=== PATIENT | male | born 1975 | race Caucasian/White ===

== ENCOUNTER 2018-02-22 15:07 | Inpatient (IN) | payer OTHER ==
[~2018-02-22] VITALS: Ht 177.8 cm; Wt 235.9 kg
--- NOTE | ~2018-02-22 | HC ---
[facility] [place] [address] CONSULTATION Name: IDRIS FORBES Room #: 427-P ADM IN M.R.#: [id number] Admission: 02/22/18 Attend Phys: Bartolome Bowen MD Discharge: Date of : 71 Report #: [id number] THIS REPORT FOR: //name// CC: [facility] physician/PCP Bartolome Bowen DATE OF SERVICE: 02/23/2018 CHIEF COMPLAINT: Cellulitis and lymphedema of the left lower extremity. HISTORY OF PRESENT ILLNESS: This is a 42-year-old white male patient with history of chronic lymphedema of his left lower extremity. He fell and injured his knee about 6 years ago. He had no surgical intervention or fractures, but states that he developed lymphedema in his leg. Shortly thereafter, he has had recurring history of cellulitis and even had to undergo incision and drainage procedures in 2011 for a recalcitrant infection. The patient states that over the last couple of days, he has developed increasing redness, drainage and odor from his left leg. He was admitted for intravenous antibiotic therapy. I have been asked to see him with regard to wound care. PAST MEDICAL HISTORY: Positive for history of super morbid obesity, chronic lymphedema, left greater than right, recurring left leg cellulitis, history of sleep apnea, hypertension and history of previous MRSA infection. SOCIAL HISTORY: Positive for occasional marijuana use. Denies tobacco use, admits to occasional alcohol consumption. FAMILY HISTORY: Noncontributory. REVIEW OF SYSTEMS: CONSTITUTIONAL: The patient denies fever, chills or weight loss. NEUROLOGICAL: The patient denies focal weakness, numbness or tingling. EYES: The patient denies visual changes, redness or drainage. ENT: The patient denies earache, nasal drainage or sore throat. CARDIOVASCULAR: The patient denies chest pain or palpitation or diaphoresis. PULMONARY: The patient denies cough or shortness of breath. GASTROINTESTINAL: The patient denies nausea, vomiting, diarrhea or abdominal pain. ORTHOPEDIC: The patient does note pain, swelling and drainage from his left lower extremity, slight swelling on the right side with no drainage or odor. Other systems in a 14-point review of systems are negative. PHYSICAL EXAMINATION: VITAL SIGNS: At this time include pulse 67, respiratory rate 14, blood pressure 114/70, temperature 98.2. GENERAL: This is a chronically ill-appearing male patient who appears to be in [address] [address] CONSULTATION Name: IDRIS FORBES Room #: 427-P [facility] IN ..#: [id number] Admission: 02/22/18 Attend Phys: Bartolome oBwen MD Discharge: Date of : 71 Report #: [id number] minimal distress. HEENT: Head is normocephalic. Nose and throat clear. NECK: Supple. LUNGS: Clear. ABDOMEN: Soft, bowel sounds present. EXTREMITIES: Lower extremities demonstrated palpable distal pulses. He has significant lymphedema bilaterally, but much more so on the left than on the right. He has several skin folds of his lower leg on the left side that have some ulceration. He has significant hyperkeratosis of the left leg, none on the right. He has erythema involving the left leg as well as the dorsum of the foot. MEDICATIONS: Include acetaminophen, alprazolam, Celebrex, diclofenac, fentanyl, levofloxacin, oxycodone, ondansetron, Bactrim. ALLERGIES: PIPERACILLIN, COCONUT, ENOXAPARIN AND BEE STINGS. CLINICAL IMPRESSION: 1. Cellulitis and ulceration of the left lower extremity. 2. Lymphedema, bilateral lower extremities, left greater than right. 3. Super morbid obesity. 4. History of methicillin-resistant Staphylococcus aureus infection. 5. Moderate to severe protein-calorie malnutrition. LABORATORY DATA: Wound cultures are pending. White blood cell count 12.9, hemoglobin 13.9. Sodium 137, potassium 3.9, chloride 103, BUN 11, creatinine 0.7. Lactic acid is 1.5. Prealbumin is low at 16.9. RECOMMENDATIONS: At this point, we will recommend daily wound care, cleansing with wound cleanser. We will place silver alginate in the folds of his left lower extremity. Recommend amlactin (ammonium lactate) lotion to the affected areas of the left lower extremity and then lymphedema therapy with compression bandaging daily. Recommend continued antibiotic therapy, pending cultures and sensitivity, aggressive nutritional support to maximize wound healing. I appreciate being asked to see him in consultation. <ELECTRONICALLY SIGNED> By: Amado Field MD 02/24/18 1008 1517 17 Amado Field MD /nt
--- NOTE | ~2018-02-22 | HC ---
[facility] [place] [address] CONSULTATION Name: IDRIS FORBES Room #: 427-P ADM IN M.R.#: [id number] Admission: 02/22/18 Attend Phys: Bartolome Bowen MD Discharge: Date of : 71 Report #: [id number] THIS REPORT FOR: //name// CC: [facility] physician/PCP Bartolome Bowen DATE OF SERVICE: 02/23/2018 REASON FOR CONSULTATION: Evaluation concerning left lower extremity lymphedema with cellulitis. HISTORY OF PRESENT ILLNESS: The patient is a 42-year-old morbidly obese gentleman who has had chronic lymphedema, left lower extremity. In 2011, was diagnosed with MRSA infection in this limb. He states that over the last year, he has lost about 30 pounds. He continues to have significant swelling in the leg. He started doing some debridement of the skin over the last week or so. He has noticed increased swelling and pain mostly in his foot. Because of this, he presented to the Emergency Room for further evaluation. No documented fever, chills or sweats. Most of his issue has been pain in the lower leg and foot. There has been minimal drainage from his lower leg wounds. Mild nausea. He has had loose stools since his cholecystectomy, this is unchanged. No other abdominal pain. No dysuria or frequency. No cough or sputum production. No chest pain or palpitations. No mood changes. No other neurologic issues. No lymphadenopathy noted. REVIEW OF SYSTEMS: Ten-point review negative other than what is described above. ALLERGIES: COCONUT, ENOXAPARIN, ZOSYN. MEDICATIONS: As noted on his MAR including Celebrex, OxyContin and alprazolam. PAST MEDICAL HISTORY: MRSA of the left leg wound in 2011, hypertension, headaches, hyperlipidemia, obstructive sleep apnea, morbid obesity, irregular heart rate. Chronic lymphedema, anxiety, chronic low back pain. FAMILY HISTORY: Noncontributory. SOCIAL HISTORY: Nonsmoker, does use marijuana. No significant alcohol intake. PHYSICAL EXAMINATION: VITAL SIGNS: Afebrile and hemodynamically stable. GENERAL: He is alert and cooperative and ambulatory. He was in no distress. EYES: Without conjunctivitis or scleral icterus. MOUTH: Without mucositis. NECK: Supple, with no thyromegaly. [address] [address] CONSULTATION Name: IDRIS FORBES Room #: 427-P [facility] IN M.R.#: [id number] Admission: 02/22/18 Attend Phys: Bartolome Bowen MD Discharge: Date of : 71 Report #: [id number] SKIN: Without rash other than what will be described on his left lower extremity. LYMPH: No palpable adenopathy. The patient was morbidly obese. LUNGS: Clear. HEART: Regular, without murmur. ABDOMEN: Soft and nontender. Large abdominal pannus. NEUROLOGIC: Normal with cranial nerves intact. Strength normal in upper and lower extremities. Sensation intact. Mood normal. No anxiety or depression. EXTREMITIES: 4+ lymphedema involving the left lower extremity. He had elephantiasis changes below the knee. Swelling in his left foot as well. Erythema was mostly from the ankle to the proximal calf region. Moderate amount of tenderness in this region. He had eschars surrounding the abraded skin. LABORATORY STUDIES: Sodium 137, potassium 3.9, bicarbonate 28, creatinine 0.7. Liver function test normal. Hemoglobin 13.1, platelet count was 219,000, WBC 7.3. Blood cultures pending. Leg wound culture pending. Urinalysis negative. IMPRESSION: 1. Morbid obesity. 2. Chronic lymphedema. 3. Secondary cellulitis with lymphangitis. 4. Hypertension. 5. Chronic pain. RECOMMENDATION: We will continue with vancomycin pending culture results. Screen for MRSA. Continue with daily cleansing of his left lower leg. Elevate left leg. Control edema as much as possible. Weight loss diet. Lymphedema clinic. Nail care. <ELECTRONICALLY SIGNED> By: Alexandru Kwon MD 02/24/18 1700 1236 [id number] Alexandru Kwon MD /nt
[2018-02-22 15:07] VITALS: BP 151/90
[~2018-02-22 15:07] MED LIST: AFLURIA 2045 MCG/0.4; ALPRAZOLAM2 MG PO; BACTRIM DS TAB1 EACH; BACTRIM DS TAB1 EACH PO; BENTYL20 MG PO; CATHFLO ACT2 MG/VIA1 IV PUSH; CELEBREX 200 M200 M1 PO; CELEBREX50 MG; FLEXERIL PO; HYDROCERIN CREA1 JAR TOP; HYDROXYZINE PAMOATE 25 MG PO; IBUPROFEN 600600 M1 PO; IBUPROFEN 800800 M1 PO; MIDODRINE HCL 55 M1 PO; Morphine Sulfate IV PUSH; NORCO 5-325 TA1 EACH PO; ONDANSETRON HCL4 M1 IV; ONDANSETRON HCL4 M2 PO; OXYCONTIN CR 2020 MG PO; OXYCONTIN40 MG PO; PERCOCET 5-3251 EACH PO; PHENERGAN 25 MG25 M1 PO; PHENERGAN25 MG RE; PNEUMOVAX25 MCG/0.5; PREFILLED SUBQ; PROMETHAZINE-C120 ML PO; PROTONIX40 M1 PO; Pantoprazole Sodium 40 Mg Tablet PO; REGLAN 10 MG TA10 MG PO; ROXICODONE30 M1 PO; THEOCHRON200 MG PO; THEOPHYLLINE S200 M1 PO; VOLTAREN100 GM TOP; XANAX XR2 MG PO; ZAROXOLYN 2.5M2.5 M1 PO; ZOFRAN 4 MG ORAL4 M1 DISSOLVE; ZOFRAN ODT4 MG PO; [UNRECOGNIZED DRUG - OTHER] SUBQ
[2018-02-22 16:09] LABS: EOSINOPHILS 2.4 % (0.0-3.0)
[2018-02-22 16:12] LABS: CALCIUM 8.8 mg/dL (8.5-10.1); CREATININE 0.7 mg/dL (0.7-1.3)
[2018-02-22 16:13] LABS: ABSOLUTE NEUTROPHILS 6.5 thou/uL (1.4-8.2); BASOPHILS 0.9 % (0.0-2.0); HEMOGLOBIN 13.9 gm/dL (14.0-18.0); LYMPHOCYTES 27.5 % (24.0-44.0); MCV 88.3 fL (80.0-100.0); MONOCYTES 9.8 % (1.0-8.0); PLATELET COUNT 217 thou/uL (150-400); POLYS 59.4 % (36.0-66.0); RBC 4.65 mil/uL (4.50-6.00); WBC 12.9 thou/uL (4.0-11.0)
[2018-02-22 16:18] LABS: ALBUMIN 2.9 g/dL (3.4-5.0); TOTAL BILIRUBIN 0.2 mg/dL (<0.1-1.0); TOTAL PROTEIN 7.1 g/dL (6.4-8.2)
[2018-02-22 18:04] VITALS: BP 167/93
[2018-02-22 18:10] LABS: ALBUMIN 2.9 g/dL (3.4-5.0); TOTAL PROTEIN 7.2 g/dL (6.4-8.2)
[2018-02-22 18:15] VITALS: BP 150/82
[2018-02-22 18:39] VITALS: BP 135/83
[2018-02-22 18:41] LABS: TSH 1.763 uIU/mL (0.358-3.740)
[2018-02-22 19:54] VITALS: BP 141/87
[2018-02-22 23:45] LABS: URINE BILIRUBIN NEGATIVE (Negative); URINE BLOOD NEGATIVE (Negative); URINE CLARITY CLEAR; URINE GLUCOSE-RANDOM* NEGATIVE (Negative); URINE KETONES NEGATIVE (Negative); URINE LEUKOCYTES-REFLEX NEGATIVE (Negative); URINE NITRITE-REFLEX NEGATIVE (Negative); URINE PROTEIN (DIPSTICK) NEGATIVE (Negative); URINE SPECIFIC GRAVITY >= 1.030 (1.005-1.035); URINE UROBILINOGEN 0.2 E.U./dl (0.2-1.0)
[2018-02-22 23:46] LABS: URINE COLOR YELLOW
[2018-02-23 04:58] VITALS: BP 113/67
[2018-02-23 06:19] LABS: HEMATOCRIT 39.4 % (42.0-52.0); HEMOGLOBIN 13.1 gm/dL (14.0-18.0); MCH 29.7 pg (26.0-34.0); MCHC 33.2 g/dL (28.0-37.0); MCV 89.5 fL (80.0-100.0); RBC 4.4 mil/uL (4.50-6.00); RDW 14.1 % (10.5-14.5); WBC 7.3 thou/uL (4.0-11.0)
[2018-02-23 06:21] LABS: CALCIUM 8.7 mg/dL (8.5-10.1); CREATININE 0.7 mg/dL (0.7-1.3); MAGNESIUM 1.8 mg/dL (1.8-2.4); POTASSIUM 3.9 mmol/L (3.5-5.1)
[2018-02-23 08:07] VITALS: BP 114/71
[2018-02-23 15:28] VITALS: BP 130/88
[2018-02-23 20:49] VITALS: BP 160/98
[2018-02-24 06:13] LABS: HEMATOCRIT 40.9 % (42.0-52.0); HEMOGLOBIN 13.9 gm/dL (14.0-18.0); MCH 30.2 pg (26.0-34.0); MCV 88.9 fL (80.0-100.0); RBC 4.61 mil/uL (4.50-6.00); WBC 6.6 thou/uL (4.0-11.0)
[2018-02-24 06:28] LABS: CALCIUM 8.9 mg/dL (8.5-10.1); CREATININE 0.8 mg/dL (0.7-1.3); MAGNESIUM 1.8 mg/dL (1.8-2.4); POTASSIUM 3.7 mmol/L (3.5-5.1)
[2018-02-24 09:30] VITALS: BP 143/80
[2018-02-24 16:09] VITALS: BP 134/74
[2018-02-24 20:00] VITALS: BP 134/90
[2018-02-25 04:00] VITALS: BP 130/85
[2018-02-25 06:30] LABS: HEMATOCRIT 41.4 % (42.0-52.0); HEMOGLOBIN 14.3 gm/dL (14.0-18.0); MCH 30.3 pg (26.0-34.0); MCHC 34.5 g/dL (28.0-37.0); MCV 87.9 fL (80.0-100.0); RBC 4.71 mil/uL (4.50-6.00); RDW 13.9 % (10.5-14.5)
[2018-02-25 06:42] LABS: CALCIUM 8.9 mg/dL (8.5-10.1); CREATININE 0.8 mg/dL (0.7-1.3); MAGNESIUM 1.7 mg/dL (1.8-2.4)
[2018-02-25 07:30] VITALS: BP 140/99
[2018-02-25 16:27] VITALS: BP 143/100
[2018-02-25 18:41] VITALS: BP 162/94
[2018-02-26 07:43] LABS: HEMATOCRIT 41.6 % (42.0-52.0); HEMOGLOBIN 14.1 gm/dL (14.0-18.0); MCH 29.8 pg (26.0-34.0); MCHC 33.9 g/dL (28.0-37.0); RBC 4.73 mil/uL (4.50-6.00); RDW 13.9 % (10.5-14.5); WBC 6.2 thou/uL (4.0-11.0)
[2018-02-26 08:01] LABS: CALCIUM 9.1 mg/dL (8.5-10.1); CREATININE 0.8 mg/dL (0.7-1.3); MAGNESIUM 1.9 mg/dL (1.8-2.4); POTASSIUM 3.9 mmol/L (3.5-5.1)
[2018-02-26 09:06] VITALS: BP 155/92
[2018-02-26] MEDS ORDERED: MIRALAX17 GM PO (11:53)
[2018-02-26] MEDS ORDERED: PROBIOTIC1 EAC1 PO (11:53)
[2018-02-26] MEDS ORDERED: KEFLEX500 M1 PO (11:53)
[2018-02-26] MEDS ORDERED: AMMONIUM LACTA226 GM TOP (11:53)
[2018-02-26 12:59] VITALS: BP 155/92
== END 2018-02-26 14:37 | disposition home health service (06) | DRG 871 ==
LOC: ER 15:07 → 4E 16:53 → EROBS 16:53 → 4E 18:24 → SICU 02-25 18:24 → ENTRNSPT 02-26 13:56 → EDTRNSPTSTS 02-26 14:27 → SICU 02-26 14:37
PROVIDERS: Emergency Medicine; Internal Medicine
DX: A41.9 Sepsis, unspecified organism (principal); E43 Unspecified severe protein-calorie malnutrition; L03.116 Cellulitis of left lower limb; L97.929 Non-pressure chronic ulcer of unspecified part of left lower leg with unspecified severity; Z68.45 Body mass index [BMI] 70 or greater, adult; F41.9 Anxiety disorder, unspecified; E78.00 Pure hypercholesterolemia, unspecified; I10 Essential (primary) hypertension; E66.01 Morbid (severe) obesity due to excess calories; F12.90 Cannabis use, unspecified, uncomplicated; I87.2 Venous insufficiency (chronic) (peripheral); I89.0 Lymphedema, not elsewhere classified; E78.5 Hyperlipidemia, unspecified; F32.9 Major depressive disorder, single episode, unspecified; F41.8 Other specified anxiety disorders; G47.33 Obstructive sleep apnea (adult) (pediatric); G89.29 Other chronic pain; M54.9 Dorsalgia, unspecified; Z86.14 Personal history of Methicillin resistant Staphylococcus aureus infection; Z88.1 Allergy status to other antibiotic agents; Z88.8 Allergy status to other drugs, medicaments and biological substances; Z87.891 Personal history of nicotine dependence; Z79.899 Other long term (current) drug therapy
CPT/HCPCS: 10183; 15002

== ENCOUNTER → 2018-03-04 | Outpatient (CLI) | payer OTHER ==
[~2018-03-04] MED LIST changes: +AMMONIUM LACTA226 GM TOP; +KEFLEX500 M1 PO; +MIRALAX17 GM PO; +PROBIOTIC1 EAC1 PO
== END ==
LOC: HYPER 02-27 10:00
DX: L03.116 Cellulitis of left lower limb (principal); I89.0 Lymphedema, not elsewhere classified; E66.01 Morbid (severe) obesity due to excess calories; E78.00 Pure hypercholesterolemia, unspecified; G47.30 Sleep apnea, unspecified; I10 Essential (primary) hypertension; L84 Corns and callosities; J45.909 Unspecified asthma, uncomplicated; F12.90 Cannabis use, unspecified, uncomplicated; F41.9 Anxiety disorder, unspecified; F32.9 Major depressive disorder, single episode, unspecified; Z68.45 Body mass index [BMI] 70 or greater, adult; Z87.891 Personal history of nicotine dependence

== ENCOUNTER 2018-04-16 10:19 | Inpatient (IN) | payer OTHER ==
[~2018-04-16] VITALS: Ht 177.8 cm; Wt 233.6 kg
--- NOTE | ~2018-04-16 | HC ---
[facility] [place] [address] CONSULTATION Name: IDRIS FORBES Room #: 458-P [facility] IN M.R.#: [id number] Admission: 04/16/18 Attend Phys: Bartolome Bowen MD Discharge: Date of : 71 Report #: [id number] THIS REPORT FOR: //name// CC: Amado Bowen DATE OF SERVICE: 04/17/2018 CHIEF COMPLAINT: Cellulitis and lymphedema, left lower extremity. HISTORY OF PRESENT ILLNESS: This is a 42-year-old male patient with whom I am familiar with longstanding lymphedema to both lower extremities, much more so on the left than on the right, who was admitted with cellulitis that has developed over the last couple of days. He has increasing swelling, redness and pain in his left lower extremity. He was receiving lymphedema therapy at home and states that the redness has improved gradually worsened. He denies any nausea, vomiting, fever, chills or any urinary symptoms at present. PAST MEDICAL HISTORY: Significant for lumbar disk disease, super morbid obesity, anxiety, chronic lymphedema, left greater than right, recurring cellulitis, sleep apnea, elevated cholesterol. SOCIAL HISTORY: The patient denies alcohol or tobacco use. FAMILY HISTORY: Noncontributory. ALLERGIES: Include COCONUT, ENOXAPARIN, PIPERACILLIN AND TAZOBACTAM. MEDICATIONS: Ondansetron, ammonium lactate, polyethylene glycol, alprazolam, Celebrex. REVIEW OF SYSTEMS: CONSTITUTIONAL: The patient denies fever, chills or weight loss. NEUROLOGICAL: The patient denies focal weakness, numbness or tingling. EYES: The patient denies visual changes, redness or drainage. ENT: The patient denies earache, nasal drainage or sore throat. CARDIOVASCULAR: The patient denies chest pain, palpitations or diaphoresis. PULMONARY: The patient denies cough or shortness of breath. GASTROINTESTINAL: The patient denies nausea, vomiting, diarrhea or abdominal pain. ORTHOPEDIC: The patient does complain of pain, swelling, redness of the left lower extremity. Other systems in a 14-point review of systems are negative. PHYSICAL EXAMINATION: [facility] [address] [place] [address] CONSULTATION Name: IDRIS FORBES Room #: 458-P [facility] IN .R.#: [id number] Admission: 04/16/18 Attend Phys: Bartolome Bowen MD Discharge: Date of : 71 Report #: [id number] VITAL SIGNS: At this time include pulse rate 96, respiratory rate of 18, blood pressure 120/71, temperature 98.9. GENERAL: This is a chronically ill-appearing male patient who appears to be in no distress. HEENT: Head normocephalic. Nose and throat are clear. NECK: Supple. LUNGS: Clear. HEART: Regular rate. ABDOMEN: Soft. Bowel sounds present. EXTREMITIES: Examination of the lower extremities demonstrates significant 3+ edema of the left leg with significant erythema from toes, all the way up to the knee level with warmth consistent with significant cellulitis. The right leg is swollen, but much smaller than the left. NEUROLOGIC: The patient is alert and oriented. LABORATORY DATA: Includes sodium 134, potassium 3.6, chloride 100, CO2 of 24, BUN 14, creatinine 1.0, glucose 94, alkaline phosphatase 78, ALT is 22, total protein 8.1, albumin is 3.4. Lactic acid is 2.2, 3.3 earlier in the day. White blood cell count 21.8 with a hemoglobin of 14.4. The venous Doppler shows no evidence of DVT in either lower extremity. CLINICAL IMPRESSION: 1. Lymphedema, bilateral lower extremities, left much greater than right. 2. Significant cellulitis from toes to knee on the left lower extremity. 3. Super morbid obesity. 4. Obstructive sleep apnea. 5. Lymphedema, bilateral lower extremities. RECOMMENDATIONS: At this point in time, we will recommend continued intravenous antibiotic therapy. There is no obvious area to obtain cultures. We will continue his home medications. We will recommend elevation of the leg for control of edema. It is not reasonable to wrap or compress his leg, as this would likely worsen a cellulitis at present. Once we have the cellulitis under better control, I think we could resume lymphedema therapy and compression bandaging. I do appreciate being asked to see him in consultation. <ELECTRONICALLY SIGNED> By: Amado Field MD 04/20/18 0922 [id number] [id number] Amado Field MD /nt
--- NOTE | ~2018-04-16 | EKG ---
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 : 1975 Requested By: Janey Roberts Order Number: [id number] MD: Mirza Tyson Measurements Intervals [place] Rate: 106 P: 52 MT: 173 QRS: -37 QRSD: 103 T: 43 QT: 330 QTc: 439 Interpretive Statements Sinus tachycardia Poor R wave progression Inferior infarct, age indeterminate Compared to ECG 12/15/2014 12:36:14 Sinus bradycardia no longer present Electronically Signed On 04-17-2018 7:37:56 [employer] by Mirza Tyson [email or web address] <ELECTRONICALLY SIGNED> By: Mirza Tyson MD, [facility] 04/17/18 0737 1045 Mirza Tyson MD, [facility] /EPI
[2018-04-16 10:20] VITALS: BP 109/68
[2018-04-16 11:31] LABS: URINE BILIRUBIN NEGATIVE (Negative); URINE BLOOD NEGATIVE (Negative); URINE CLARITY CLEAR; URINE COLOR YELLOW; URINE GLUCOSE-RANDOM* NEGATIVE (Negative); URINE KETONES NEGATIVE (Negative); URINE LEUKOCYTES NEGATIVE (Negative); URINE NITRITE NEGATIVE (Negative); URINE PROTEIN (DIPSTICK) TRACE (Negative); URINE SPECIFIC GRAVITY 1.015 (1.005-1.035); URINE UROBILINOGEN 0.2 E.U./dl (0.2-1.0)
[2018-04-16 11:38] LABS: HEMATOCRIT 47.3 % (42.0-52.0); HEMOGLOBIN 15.7 gm/dL (14.0-18.0); MCH 29.5 pg (26.0-34.0); MCHC 33.2 g/dL (28.0-37.0); MCV 88.7 fL (80.0-100.0); PLATELET COUNT 177 thou/uL (150-400); RBC 5.34 mil/uL (4.50-6.00); RDW 14.3 % (10.5-14.5); WBC 20.4 thou/uL (4.0-11.0)
[2018-04-16 11:50] LABS: CALCIUM 9.1 mg/dL (8.5-10.1); POTASSIUM 3.6 mmol/L (3.5-5.1)
[2018-04-16 11:56] LABS: ALBUMIN 3.4 g/dL (3.4-5.0); TOTAL BILIRUBIN 1.2 mg/dL (<0.1-1.0); TOTAL PROTEIN 8.1 g/dL (6.4-8.2)
[2018-04-16 12:19] LABS: PLATELET ESTIMATE NORMAL
[2018-04-16 12:39] VITALS: BP 127/90
[2018-04-16 13:35] VITALS: BP 106/77
[2018-04-16 13:58] VITALS: BP 114/72
[2018-04-16] MEDS ORDERED: CYMBALTA30 MG PO (17:21)
[2018-04-16 20:20] VITALS: BP 124/75
[2018-04-17 04:01] VITALS: BP 101/61
[2018-04-17 05:43] LABS: CALCIUM 8.3 mg/dL (8.5-10.1); HEMATOCRIT 43.7 % (42.0-52.0); HEMOGLOBIN 14.4 gm/dL (14.0-18.0); MAGNESIUM 1.5 mg/dL (1.8-2.4); MCH 29.4 pg (26.0-34.0); MCHC 32.8 g/dL (28.0-37.0); MCV 89.6 fL (80.0-100.0); RBC 4.88 mil/uL (4.50-6.00); RDW 13.8 % (10.5-14.5); WBC 21.8 thou/uL (4.0-11.0)
[2018-04-17 05:46] LABS: POTASSIUM 2.9 mmol/L (3.5-5.1)
[2018-04-17 06:20] LABS: ABSOLUTE NEUTROPHILS 21.1 thou/uL (1.4-8.2); PLATELET ESTIMATE NORMAL
[2018-04-17 06:21] LABS: PLATELET COUNT 177 thou/uL (150-400); POLYCHROMASIA OCCASIONAL
[2018-04-17 08:00] VITALS: BP 138/83
[2018-04-17 16:00] VITALS: BP 127/69
[2018-04-17 19:16] VITALS: BP 120/71
[2018-04-18 02:21] VITALS: BP 130/68
[2018-04-18 10:05] VITALS: BP 134/82
[2018-04-18 10:10] LABS: HEMATOCRIT 41.6 % (42.0-52.0); MCH 29.9 pg (26.0-34.0); MCHC 33.7 g/dL (28.0-37.0); MCV 88.6 fL (80.0-100.0); RBC 4.7 mil/uL (4.50-6.00); RDW 14.3 % (10.5-14.5); WBC 11.8 thou/uL (4.0-11.0)
[2018-04-18 10:20] LABS: CALCIUM 8.4 mg/dL (8.5-10.1); CREATININE 0.9 mg/dL (0.7-1.3); MAGNESIUM 1.9 mg/dL (1.8-2.4); POTASSIUM 3.2 mmol/L (3.5-5.1)
[2018-04-18 16:02] VITALS: BP 127/75
[2018-04-18 16:45] VITALS: BP 108/66
[2018-04-18 19:20] VITALS: BP 113/73
[2018-04-18 23:53] VITALS: BP 107/64
[2018-04-19 05:00] VITALS: BP 133/86
[2018-04-19 05:55] LABS: HEMATOCRIT 39.3 % (42.0-52.0); HEMOGLOBIN 13.2 gm/dL (14.0-18.0); MCH 29.8 pg (26.0-34.0); MCHC 33.7 g/dL (28.0-37.0); MCV 88.5 fL (80.0-100.0); RBC 4.44 mil/uL (4.50-6.00); WBC 12.6 thou/uL (4.0-11.0)
[2018-04-19 06:54] LABS: CALCIUM 8.3 mg/dL (8.5-10.1); CREATININE 0.8 mg/dL (0.7-1.3); MAGNESIUM 1.9 mg/dL (1.8-2.4); POTASSIUM 3.4 mmol/L (3.5-5.1)
[2018-04-19 08:00] VITALS: BP 114/69
[2018-04-19 10:58] VITALS: BP 114/69
[2018-04-19 15:18] VITALS: BP 115/64
[2018-04-19 19:49] VITALS: BP 107/76
[2018-04-20 03:01] VITALS: BP 115/79
[2018-04-20 06:29] LABS: HEMATOCRIT 38.2 % (42.0-52.0); HEMOGLOBIN 12.8 gm/dL (14.0-18.0); MCH 29.7 pg (26.0-34.0); MCHC 33.4 g/dL (28.0-37.0); RBC 4.29 mil/uL (4.50-6.00); RDW 14.3 % (10.5-14.5); WBC 8.6 thou/uL (4.0-11.0)
[2018-04-20 06:33] LABS: CALCIUM 8.2 mg/dL (8.5-10.1); CREATININE 0.7 mg/dL (0.7-1.3); MAGNESIUM 1.9 mg/dL (1.8-2.4); POTASSIUM 3.6 mmol/L (3.5-5.1)
[2018-04-20 07:36] VITALS: BP 135/85
[2018-04-20 09:59] VITALS: BP 135/85
[2018-04-20 14:30] VITALS: BP 133/90
[2018-04-20 19:17] VITALS: BP 137/95
[2018-04-21 03:09] VITALS: BP 114/73
[2018-04-21 05:54] LABS: HEMATOCRIT 36.7 % (42.0-52.0); HEMOGLOBIN 12.6 gm/dL (14.0-18.0); MCH 30.2 pg (26.0-34.0); MCHC 34.4 g/dL (28.0-37.0); MCV 87.9 fL (80.0-100.0); RBC 4.17 mil/uL (4.50-6.00); RDW 13.9 % (10.5-14.5)
[2018-04-21 06:09] LABS: CALCIUM 8.3 mg/dL (8.5-10.1); CREATININE 0.6 mg/dL (0.7-1.3); MAGNESIUM 1.8 mg/dL (1.8-2.4); POTASSIUM 3.5 mmol/L (3.5-5.1)
[2018-04-21 08:00] VITALS: BP 128/85
[2018-04-21 16:00] VITALS: BP 145/95
[2018-04-21 19:15] VITALS: BP 135/99
[2018-04-22 06:55] LABS: CALCIUM 8.8 mg/dL (8.5-10.1); CREATININE 0.6 mg/dL (0.7-1.3); MAGNESIUM 1.9 mg/dL (1.8-2.4); POTASSIUM 3.4 mmol/L (3.5-5.1)
[2018-04-22 07:18] LABS: HEMATOCRIT 37.6 % (42.0-52.0); HEMOGLOBIN 12.9 gm/dL (14.0-18.0); MCHC 34.3 g/dL (28.0-37.0); MCV 87.4 fL (80.0-100.0); RBC 4.3 mil/uL (4.50-6.00); RDW 14.2 % (10.5-14.5); WBC 8.5 thou/uL (4.0-11.0)
[2018-04-22 07:38] VITALS: BP 136/76
[2018-04-22 13:15] VITALS: BP 130/74
[2018-04-22 16:26] VITALS: BP 130/74
[2018-04-22 16:33] VITALS: BP 130/74
[2018-04-22 16:36] VITALS: BP 130/74
[2018-04-22] MEDS ORDERED: LASIX 40 MG TAB40 M2 PO (16:59)
[2018-04-22] MEDS ORDERED: ROCEPHIN 11 GM/1001 IV (17:03)
[2018-04-22] MEDS ORDERED: HYDROCODON-ACE1 EAC7 PO (17:05)
== END 2018-04-22 20:13 | disposition home health service (06) | DRG 871 ==
LOC: ER 10:19 → 4W 12:33 → EROBS 12:33 → 4W 13:41
PROVIDERS: Internal Medicine; Nurse Practitioner; Physician Assistant
PROC: 05H933Z Insertion of Infusion Device into Right Brachial Vein, Percutaneous Approach (ICD-10-PCS; principal; 2018-04-16)
DX: A41.9 Sepsis, unspecified organism (principal); E43 Unspecified severe protein-calorie malnutrition; L03.116 Cellulitis of left lower limb; Z68.45 Body mass index [BMI] 70 or greater, adult; R65.20 Severe sepsis without septic shock; E66.01 Morbid (severe) obesity due to excess calories; G47.33 Obstructive sleep apnea (adult) (pediatric); G89.29 Other chronic pain; M54.9 Dorsalgia, unspecified; F32.9 Major depressive disorder, single episode, unspecified; F41.1 Generalized anxiety disorder; I89.0 Lymphedema, not elsewhere classified; Z88.0 Allergy status to penicillin; Z88.8 Allergy status to other drugs, medicaments and biological substances; Z86.14 Personal history of Methicillin resistant Staphylococcus aureus infection; Z79.899 Other long term (current) drug therapy
CPT/HCPCS: 10045; 27000

== ENCOUNTER 2018-04-23 11:58 | Emergency (ER) | payer OTHER ==
[~2018-04-23] VITALS: Ht 177.8 cm; Wt 235.9 kg
[~2018-04-23 11:58] MED LIST changes: +CYMBALTA30 MG PO; +HYDROCODON-ACE1 EAC7 PO; +LASIX 40 MG TAB40 M2 PO; +ROCEPHIN 11 GM/1001 IV
[2018-04-23 11:59] VITALS: BP 146/94
[2018-04-23 12:38] LABS: URINE BILIRUBIN NEGATIVE (Negative); URINE BLOOD NEGATIVE (Negative); URINE CLARITY CLEAR; URINE COLOR YELLOW; URINE GLUCOSE-RANDOM* NEGATIVE (Negative); URINE KETONES NEGATIVE (Negative); URINE LEUKOCYTES-REFLEX NEGATIVE (Negative); URINE NITRITE-REFLEX NEGATIVE (Negative); URINE PROTEIN (DIPSTICK) NEGATIVE (Negative); URINE UROBILINOGEN 0.2 E.U./dl (0.2-1.0)
[2018-04-23 13:53] LABS: HEMATOCRIT 35.8 % (42.0-52.0); HEMOGLOBIN 12.4 gm/dL (14.0-18.0); MCH 30.2 pg (26.0-34.0); MCHC 34.7 g/dL (28.0-37.0); MCV 86.9 fL (80.0-100.0); PLATELET COUNT 318 thou/uL (150-400); RBC 4.12 mil/uL (4.50-6.00); RDW 13.8 % (10.5-14.5); WBC 9.1 thou/uL (4.0-11.0)
[2018-04-23 13:54] VITALS: BP 154/75
[2018-04-23 14:01] LABS: CALCIUM 8.5 mg/dL (8.5-10.1); CREATININE 0.7 mg/dL (0.7-1.3); POTASSIUM 3.3 mmol/L (3.5-5.1)
[2018-04-23 15:45] LABS: ANISOCYTOSIS 1+
[2018-04-23 16:16] VITALS: BP 148/83
== END 2018-04-23 16:21 | disposition home or self-care (01) ==
LOC: ER 11:58 → EROBS 13:40 → ER 13:40 → EROBS 16:21 → ER 16:21
PROVIDERS: Nurse Practitioner Family
DX: M54.5 Low back pain (principal); G89.29 Other chronic pain; L03.116 Cellulitis of left lower limb; I89.0 Lymphedema, not elsewhere classified; K02.9 Dental caries, unspecified; E66.01 Morbid (severe) obesity due to excess calories; F41.9 Anxiety disorder, unspecified; G47.30 Sleep apnea, unspecified; E78.00 Pure hypercholesterolemia, unspecified; Z87.891 Personal history of nicotine dependence; Z91.018 Allergy to other foods; Z68.45 Body mass index [BMI] 70 or greater, adult; Z88.1 Allergy status to other antibiotic agents; Z88.8 Allergy status to other drugs, medicaments and biological substances

== ENCOUNTER 2018-04-27 10:12 | Emergency (ER) | payer OTHER ==
[~2018-04-27] VITALS: Ht 269.2 cm; Wt 235.9 kg
[2018-04-27 15:51] VITALS: BP 128/80
== END 2018-04-27 15:05 | disposition home or self-care (01) ==
LOC: ER 10:12
DX: M70.62 Trochanteric bursitis, left hip (principal); F41.9 Anxiety disorder, unspecified; E78.00 Pure hypercholesterolemia, unspecified; Z87.891 Personal history of nicotine dependence; Z91.018 Allergy to other foods; Z88.8 Allergy status to other drugs, medicaments and biological substances; Y93.89 Activity, other specified
CPT/HCPCS: 27000

== ENCOUNTER 2018-05-01 13:18 | Emergency (ER) | payer OTHER ==
[~2018-05-01] VITALS: Ht 185.4 cm; Wt 215.5 kg
[2018-05-01] MEDS ORDERED: KEFLEX500 M1 PO (15:04)
[2018-05-01] MEDS ORDERED: TORADOL 10 MG T10 MG PO (15:11)
[2018-05-01 15:15] VITALS: BP 131/88
== END 2018-05-01 15:45 | disposition home or self-care (01) ==
LOC: ER 13:18
DX: L03.116 Cellulitis of left lower limb (principal); M25.551 Pain in right hip; F41.9 Anxiety disorder, unspecified; G47.30 Sleep apnea, unspecified; E78.00 Pure hypercholesterolemia, unspecified; Z87.891 Personal history of nicotine dependence; Z91.018 Allergy to other foods; Z88.8 Allergy status to other drugs, medicaments and biological substances; Z88.1 Allergy status to other antibiotic agents

== ENCOUNTER 2019-02-08 08:21 | Emergency (ER) | payer OTHER ==
[~2019-02-08] VITALS: Ht 177.8 cm; Wt 190.5 kg
[~2019-02-08 08:21] MED LIST changes: +TORADOL 10 MG T10 MG PO
[2019-02-08] MEDS ORDERED: PREDNISONE 20 M20 MG PO (08:45)
[2019-02-08] MEDS ORDERED: BENADRYL ALLERG25 MG PO (08:45)
[2019-02-08] MEDS ORDERED: BACITRACIN28.4 G1 TOP (08:45)
[2019-02-08 09:00] VITALS: BP 108/70
== END 2019-02-08 09:00 | disposition home or self-care (01) ==
LOC: ER 08:21
DX: S50.862A Insect bite (nonvenomous) of left forearm, initial encounter (principal); E78.00 Pure hypercholesterolemia, unspecified; F41.9 Anxiety disorder, unspecified; I89.0 Lymphedema, not elsewhere classified; G47.30 Sleep apnea, unspecified; E66.01 Morbid (severe) obesity due to excess calories; Z68.44 Body mass index [BMI] 60.0-69.9, adult; Z86.14 Personal history of Methicillin resistant Staphylococcus aureus infection; Z91.030 Bee allergy status; Z91.018 Allergy to other foods; Z88.8 Allergy status to other drugs, medicaments and biological substances; Z88.0 Allergy status to penicillin; Z87.891 Personal history of nicotine dependence; W57.XXXA Bitten or stung by nonvenomous insect and other nonvenomous arthropods, initial encounter; Y92.89 Other specified places as the place of occurrence of the external cause; Y93.89 Activity, other specified; Y99.8 Other external cause status

== ENCOUNTER 2019-07-19 08:19 | Emergency (ER) | payer MEDICARE ==
[~2019-07-19] VITALS: Ht 177.8 cm; Wt 181.4 kg
[~2019-07-19 08:19] MED LIST changes: +BACITRACIN28.4 G1 TOP; +BENADRYL ALLERG25 MG PO; +PREDNISONE 20 M20 MG PO
[2019-07-19] MEDS ORDERED: NOHOMEMEDICATIONS (08:32)
[2019-07-19 09:08] LABS: BASOPHILS 1.1 % (0.0-2.0); EOSINOPHILS 1.9 % (0.0-3.0); HEMATOCRIT 41.4 % (42.0-52.0); HEMOGLOBIN 13.5 gm/dL (14.0-18.0); LYMPHOCYTES 22.1 % (24.0-44.0); MCH 29.1 pg (26.0-34.0); MCHC 32.6 g/dL (28.0-37.0); MCV 89.1 fL (80.0-100.0); MONOCYTES 8.8 % (1.0-8.0); PLATELET COUNT 261 thou/uL (150-400); POLYS 66.1 % (36.0-66.0); RBC 4.64 mil/uL (4.50-6.00); RDW 13.7 % (10.5-14.5); WBC 9.1 thou/uL (4.0-11.0)
[2019-07-19 09:19] LABS: CALCIUM 9.1 mg/dL (8.5-10.1); CREATININE 0.9 mg/dL (0.7-1.3); POTASSIUM 3.7 mmol/L (3.5-5.1)
[2019-07-19 09:24] LABS: ALBUMIN 3.2 g/dL (3.4-5.0); TOTAL BILIRUBIN 0.4 mg/dL (<0.1-1.0); TOTAL PROTEIN 8.2 g/dL (6.4-8.2)
[2019-07-19 09:33] VITALS: BP 96/75
== END 2019-07-19 09:37 | disposition home or self-care (01) ==
LOC: ER 08:19
PROVIDERS: Emergency Medicine
DX: R05 Cough (principal); R50.9 Fever, unspecified; E78.00 Pure hypercholesterolemia, unspecified; E66.01 Morbid (severe) obesity due to excess calories; F41.9 Anxiety disorder, unspecified; Z68.43 Body mass index [BMI] 50.0-59.9, adult; Z86.14 Personal history of Methicillin resistant Staphylococcus aureus infection; Z87.891 Personal history of nicotine dependence; Z91.030 Bee allergy status; Z91.018 Allergy to other foods; Z88.8 Allergy status to other drugs, medicaments and biological substances

== ENCOUNTER 2020-03-08 10:53 | Inpatient (IN) | payer MEDICARE ==
[~2020-03-08] VITALS: Ht 177.8 cm; Wt 204.1 kg
[~2020-03-08 10:53] MED LIST changes: +NOHOMEMEDICATIONS
[2020-03-08 11:01] VITALS: BP 132/113
[2020-03-08 11:58] LABS: URINE BILIRUBIN NEGATIVE (Negative); URINE BLOOD NEGATIVE (Negative); URINE CLARITY CLEAR; URINE COLOR YELLOW; URINE GLUCOSE-RANDOM* NEGATIVE (Negative); URINE KETONES NEGATIVE (Negative); URINE LEUKOCYTES-REFLEX NEGATIVE (Negative); URINE NITRITE-REFLEX NEGATIVE (Negative); URINE PROTEIN (DIPSTICK) NEGATIVE (Negative); URINE UROBILINOGEN 0.2 E.U./dl (0.2-1.0)
[2020-03-08 12:05] LABS: MCV 89.5 fL (80.0-100.0); WBC 8.3 thou/uL (4.0-11.0)
[2020-03-08 12:07] LABS: ABSOLUTE NEUTROPHILS 5.4 thou/uL (1.4-8.2); BASOPHILS 0.6 % (0.0-2.0); EOSINOPHILS 2.3 % (0.0-3.0); HEMATOCRIT 39.9 % (42.0-52.0); HEMOGLOBIN 13.4 gm/dL (14.0-18.0); MCHC 33.5 g/dL (28.0-37.0); MONOCYTES 9.7 % (1.0-8.0); PLATELET COUNT 220 thou/uL (150-400); POLYS 64.4 % (36.0-66.0); RBC 4.46 mil/uL (4.50-6.00); RDW 14.4 % (10.5-14.5)
[2020-03-08 12:13] LABS: ANION GAP 9 mmol/L (7-16); BUN 12 mg/dL (7-18); CALCIUM 8.6 mg/dL (8.5-10.1); CHLORIDE 104 mmol/L (98-107); CO2 26 mmol/L (21-32); CREATININE 0.6 mg/dL (0.7-1.3); GLUCOSE 98 mg/dL (74-106); POTASSIUM 3.9 mmol/L (3.5-5.1); SODIUM 139 mmol/L (136-145)
[2020-03-08 12:19] LABS: ALBUMIN 3.4 g/dL (3.4-5.0); DIRECT BILIRUBIN < 0.1 mg/dL (<0.1-0.2); LIPASE 69 U/L (73-393); SGOT 16 U/L (15-37); SGPT 20 U/L (30-65); TOTAL BILIRUBIN 0.4 mg/dL (0.2-1.0); TOTAL PROTEIN 7.6 g/dL (6.4-8.2)
[2020-03-08 14:49] VITALS: BP 122/60
[2020-03-08 16:00] LABS: TSH 1.524 uIU/mL (0.358-3.740)
[2020-03-08 22:41] VITALS: BP 137/86
[2020-03-09 01:04] VITALS: BP 125/82
--- NOTE | 2020-03-09 04:20 | NUR ---
Pt was an admit. No acute distress. Scheduled meds administered to pt. Assessment completed and documented. Continue to monitor pt. No further needs at this time
[2020-03-09 04:27] VITALS: BP 120/73
[2020-03-09 06:34] LABS: ABSOLUTE NEUTROPHILS 5.5 thou/uL (1.4-8.2); EOSINOPHILS 2.5 % (0.0-3.0); HEMATOCRIT 40.8 % (42.0-52.0); HEMOGLOBIN 13.3 gm/dL (14.0-18.0); LYMPHOCYTES 16.2 % (24.0-44.0); MCH 29.5 pg (26.0-34.0); MCHC 32.7 g/dL (28.0-37.0); MCV 90.4 fL (80.0-100.0); MONOCYTES 9.5 % (1.0-8.0); PLATELET COUNT 196 thou/uL (150-400); POLYS 70.8 % (36.0-66.0); RBC 4.51 mil/uL (4.50-6.00); RDW 14.3 % (10.5-14.5); WBC 7.8 thou/uL (4.0-11.0)
[2020-03-09 06:45] LABS: CALCIUM 8.5 mg/dL (8.5-10.1); CREATININE 0.8 mg/dL (0.7-1.3); POTASSIUM 3.7 mmol/L (3.5-5.1)
[2020-03-09 08:21] VITALS: BP 157/110
--- NOTE | 2020-03-09 15:24 | NUR ---
ASSUMED CARE OF PT AT 0700. PT ALERT AND ORIENTED TIMES FOUR. VSS, IVF INFUSING PER ORDER. PT DENIES PAIN/SOB. PT C/O NAUSEA PRN MEDICAIONS GIVEN WITH SOME RELEIF. PT TOLERATES MEDS, BUT HAS VERY POOR APPETITE. PT UP WITH STANDBY ASSIST. WILL CONTINUE TO MONITOR.
[2020-03-09 16:26] VITALS: BP 148/82
--- NOTE | 2020-03-09 16:34 | NUR ---
CM ATTEMPTED TO VISIT WITH PT THIS AFTERNOON. PT WAS SLEEPING. IT IS CM UNDERSTANDING THAT PT IS TO TRANSFER TO [address] ON [address] THIS AFTERNOON. CM TO FOLLOW INDICATED WITH DC PLANNING.
[2020-03-09 20:18] VITALS: BP 123/79
[2020-03-10 02:12] LABS: HEMATOCRIT 42.8 % (42.0-52.0); HEMOGLOBIN 13.9 gm/dL (14.0-18.0); MCH 29.3 pg (26.0-34.0); MCHC 32.5 g/dL (28.0-37.0); MCV 90.4 fL (80.0-100.0); RBC 4.74 mil/uL (4.50-6.00); RDW 14.1 % (10.5-14.5); WBC 11.3 thou/uL (4.0-11.0)
[2020-03-10 02:21] LABS: CALCIUM 8.4 mg/dL (8.5-10.1); CREATININE 0.6 mg/dL (0.7-1.3); POTASSIUM 3.9 mmol/L (3.5-5.1)
--- NOTE | 2020-03-10 05:35 | NUR ---
ASSUMED PT CARE AROUND 1930. AXOX4. CALLS WHEN HELP NEEDED. VSS. DENIES ANY PAIN. NO S/S ACUTE DISTRESS NOTED OR REPORTED AT THIS TIME. WILL CONT TO MONITOR FOR ANY CHANGES IN CONDITION.
[2020-03-10 08:44] VITALS: BP 144/100
--- NOTE | 2020-03-10 10:23 | NUR ---
PT ADMITTED RELATED TO BLL LYMPEDEMA. CM REVIEWED CHART AND SPOKE WITH CARE TEAM. CM CALLED AND SPOKE WITH PT AT BEDSIDE THIS DAY. PT APPREARED TO BE A&O X4. CM ROLE INTRODUCED. PT INDICATED HE LIVES ALONE IN A HOUSE WITH NO STEPS TO ENTER AND A FULL FLIGHT HE USES INSIDE. 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 PT INDICATED HE HAD [facility] FOR LYMP[facility]EMA SERVICES IN THE PAST AND THAT HE WOULD BE RECEPTIVE TO USING THEM AGAIN IF NEEDED UPON DC. PT'S PHYSICAIN IS CLAUDINE OCHOA AT [facility] IN [facility]. PT INDICATED HE PLANS TO RETURN HOME ONCE MEDICALLY STABLE. PT IS ON IV VANC AND WC CONSULTED. CM TO FOLLOW INDICATED WITH DC PLANNING.
--- NOTE | 2020-03-10 11:46 | NUR ---
PT A&OX4, VSS, DENIES PAIN AT THIS TIME. PATIENT C/O NAUSEA THIS A.M. DENIES VOMITING. REFUSED BREAKFAST. LYPHEDEMA NURSE IN TO ACCESS LEFT LEG. NS DISCONTINUED, ANTIBIOTICS CONTINUE TO RUN. NO SIGNS OF DISTRESS. WILL CONTINUE TO MONITOR.
[2020-03-10 12:19] VITALS: BP 141/62
--- NOTE | 2020-03-10 13:24 | NUR ---
Nutrition: Assessed for BMI > 40 (64.6 kg/m2) and mention of very poor appetite yesterday. Admit: bilateral LE lymphedema. Wound care to see, on IV antibiotics. On a regular diet. Talked with pt today. He refused all meals yesterday with nursing noting very poor appetite. Pt explains he needed to go to bathroom really bad and waited too long. Further explains, once his stomach gets upset, he typically can't tolerate/keep down food. After ~24 hr period, he can resume normal PO intake patterns per pt. States lunch currently is going pretty well again. He has the menu. RD strongly encouraged him to call kitchen over weekend, to make changes as needed, especially to support his increased protein needs for skin compromise. He declined any need for Ensure, but isn't against it if it reaches that point. Agrees for RD to add yogurt serving BID to breakfast, lunch. Pt denies any further nutrition concerns or needs. Keep as low nutrition risk for now.
[2020-03-10 15:34] VITALS: BP 154/104
[2020-03-10 19:20] VITALS: BP 150/99
--- NOTE | 2020-03-11 01:13 | NUR ---
ASSUMED PT CARE AROUND 1930. VSS. AXOX4. MAKES NEEDS KNOWN. LLE WRAPPED CDI. IV REPLACED PER IV TEAM. NO S/S ACUTE DISTRESS NOTED OR REPORTED AT THIS TIME. WILL CONT TO MONITOR FOR ANY CHAANGES IN CONDITION.
[2020-03-11 05:57] LABS: CALCIUM 8.5 mg/dL (8.5-10.1); CREATININE 0.8 mg/dL (0.7-1.3); POTASSIUM 3.4 mmol/L (3.5-5.1)
[2020-03-11 06:09] LABS: HEMATOCRIT 42.3 % (42.0-52.0); HEMOGLOBIN 14.1 gm/dL (14.0-18.0); MCH 29.9 pg (26.0-34.0); MCHC 33.3 g/dL (28.0-37.0); MCV 89.9 fL (80.0-100.0); RBC 4.7 mil/uL (4.50-6.00); RDW 14.3 % (10.5-14.5); WBC 7.1 thou/uL (4.0-11.0)
[2020-03-11 08:22] VITALS: BP 157/118
[2020-03-11 16:36] VITALS: BP 147/113
[2020-03-11 19:23] VITALS: BP 145/88
--- NOTE | 2020-03-11 19:42 | NUR ---
ASSUMED PATIENT CARE THIS AM. ASSESSMENT CHARTED. MEDS GIVEN PER MAR. PATIENT IS A&OX4 C/O OF PAIN IN LEG. REFUSES ANY NARCOTICS BUT STATES TORADOL HELPS. SPOKE WITH PROVIDER ABOUT THIS ISSUE DURING MORNING ROUNDS. PATIENT IS VERY UPSET ABOUT FRIENDS AND MOTHERS NEW DISCOVERY OF A MASS. PATIENT STATED HE WASN'T ABLE TO SLEEP LAST NIGHT AND WAS ANXIOUS; PROVIDER ORDERED PRN ANTI-ANXIETY MED. WOUND CARE DONE TODAY; ADMISSION ASSESSMENT WAS DONE BUT THERE WERE NO PICTURES IN THE CHART. ADMISSION CHECKLIST ON CHART WAS ALSO NOT COMPLETED. PATIENT GETS UP AROUND WITH A CANE AND TOLERATES VERY WELL. APPETITE IS FAIR. PATIENT RESTED MOST OF THE DAY D/T DEPRESSED MOOD. VOICED NO OTHER NEEDS. WILL CONTINUE TO MONITOR
--- NOTE | 2020-03-12 05:41 | NUR ---
Pt. has been up most of the shift playing on his i-pad. He did c/o right knee pain and po pain med given with some relief (see emar). He reports that he twisted his knee a little when getting up. Prn ativan given for anxiety (see emar) with some relief.
[2020-03-12 06:28] LABS: HEMATOCRIT 43.2 % (42.0-52.0); HEMOGLOBIN 14.3 gm/dL (14.0-18.0); MCH 29.8 pg (26.0-34.0); MCV 90.3 fL (80.0-100.0); RBC 4.78 mil/uL (4.50-6.00); WBC 7.1 thou/uL (4.0-11.0)
[2020-03-12 06:57] LABS: CALCIUM 8.5 mg/dL (8.5-10.1); CREATININE 0.7 mg/dL (0.7-1.3); POTASSIUM 3.3 mmol/L (3.5-5.1)
[2020-03-12 07:38] VITALS: BP 157/92
[2020-03-12 15:45] VITALS: BP 168/100
--- NOTE | 2020-03-12 18:42 | NUR ---
PT A&OX4, VSS, PAIN IN LEFT LEG. PATIENT DRESSING CHANGE COMPLETED BY DOCTOR. IV REMAINS PATENT IN L FA. NO SIGNS OF DISTRESS. WILL CONTINUE TO MONITOR.
[2020-03-12 20:14] VITALS: BP 146/84
--- NOTE | 2020-03-13 03:10 | NUR ---
ASSUMED PT CARE AROUND 1930. AXOX4. VSS. CALLS FOR ASST. LLE DRESSING CDI. NO S/S ACUTE DISTRESS NOTED OR REPORTED AT THIS TIME. WILL CONT TO MONITOR FOR ANY CHANGES IN CONDITION.
[2020-03-13 10:00] VITALS: BP 154/119
--- NOTE | 2020-03-13 15:05 | NUR ---
PT CONTINUES ON VAN Q8 AND IS GETTING LYMPHEDEMA TREATMENT. CM FAXED REFERRAL TO [facility] WHO PT HAD USED IN THE PAST. CM TO PROVIDE LIST OF PCPS HERE AT [facility] PT HAD EXPRESSED INTEREST IN GETTING NEW PCP. AWAITING FINAL ID RECS. CM FOLLOWING REGARDING DC PLANNING. PT APPEARES THAT PT IS ON O2 CURRENTLY. CM DOESN'T RECALL PT HAVING BEEN ON O2 ACUTE SPECIALIST. CM TO CLARIFY WITH NURSE. CM TO FOLLOW INDICATED WITH DC PLANNING.
[2020-03-13] MEDS ORDERED: AMMONIUM LACTA226 GM TOP (16:45)
[2020-03-13 16:46] VITALS: BP 146/84
[2020-03-13] MEDS ORDERED: VIBRAMYCIN 100100 MG PO (16:46)
[2020-03-13] MEDS ORDERED: LASIX 40 MG TAB40 MG PO (16:55)
--- NOTE | 2020-03-13 16:56 | NUR ---
ASSUMED CARE AT SHIFT CHANGE. PT A/O X 4. PROGRESSING TOWARDS POC GOALS. PT CLEARED BY ID TO GO HOME TODAY. PT UPDATED ON POC, WILL DC THIS EVENING HOME. AMBULATORY WITH STEADY GAIT WITH CANE. VSS. IV D/C'D PRIOR TO DC. NO TELE.
[2020-03-13 17:00] VITALS: BP 156/113
== END 2020-03-13 18:00 | disposition home health service (06) | DRG 602 ==
LOC: ER 10:53 → SICU 15:09 → EROBS 15:09 → 4W 15:09 → EROBS 20:30 → 4W 22:27 → SICU 22:41 → 4W 03-09 18:31
PROVIDERS: Nurse Practitioner; ADMIT Hospitalist; ATTEND Hospitalist
DX: L03.116 Cellulitis of left lower limb (principal); E43 Unspecified severe protein-calorie malnutrition; Z68.44 Body mass index [BMI] 60.0-69.9, adult; I89.0 Lymphedema, not elsewhere classified; E66.01 Morbid (severe) obesity due to excess calories; M43.10 Spondylolisthesis, site unspecified; F41.9 Anxiety disorder, unspecified; F32.9 Major depressive disorder, single episode, unspecified; G47.33 Obstructive sleep apnea (adult) (pediatric); Z88.1 Allergy status to other antibiotic agents; Z91.030 Bee allergy status; Z91.018 Allergy to other foods; Z87.891 Personal history of nicotine dependence; Z79.899 Other long term (current) drug therapy
CPT/HCPCS: 10040; 15000; 15002

== ENCOUNTER 2020-05-31 17:44 | Emergency (ER) | payer OTHER ==
[~2020-05-31] VITALS: Ht 177.8 cm; Wt 201.8 kg
[~2020-05-31 17:44] MED LIST changes: +LASIX 40 MG TAB40 MG PO; +VIBRAMYCIN 100100 MG PO
[2020-05-31 17:47] VITALS: BP 144/85
[2020-05-31] MEDS ORDERED: MOBIC15 MG PO (20:44)
== END 2020-05-31 20:54 | disposition home or self-care (01) ==
LOC: ER 17:44
DX: N50.812 Left testicular pain (principal); E78.5 Hyperlipidemia, unspecified; Z79.899 Other long term (current) drug therapy; Z87.891 Personal history of nicotine dependence; Z88.1 Allergy status to other antibiotic agents; Z88.8 Allergy status to other drugs, medicaments and biological substances; Z91.018 Allergy to other foods; Z91.030 Bee allergy status

== ENCOUNTER 2020-06-05 05:25 | Emergency (ER) | payer OTHER ==
[~2020-06-05] VITALS: Ht 177.8 cm; Wt 204.1 kg
[~2020-06-05 05:25] MED LIST changes: +MOBIC15 MG PO
[2020-06-05 06:51] LABS: ABSOLUTE NEUTROPHILS 9.2 thou/uL (1.4-8.2); BASOPHILS 0.4 % (0.0-2.0); EOSINOPHILS 0.9 % (0.0-3.0); HEMATOCRIT 38.5 % (42.0-52.0); HEMOGLOBIN 12.6 gm/dL (14.0-18.0); LYMPHOCYTES 10.5 % (24.0-44.0); MCH 29.1 pg (26.0-34.0); MCHC 32.7 g/dL (28.0-37.0); MCV 88.9 fL (80.0-100.0); MONOCYTES 8.8 % (1.0-8.0); PLATELET COUNT 205 thou/uL (150-400); POLYS 79.4 % (36.0-66.0); RBC 4.33 mil/uL (4.50-6.00); RDW 14.1 % (10.5-14.5); WBC 11.5 thou/uL (4.0-11.0)
[2020-06-05 06:58] LABS: CALCIUM 8.7 mg/dL (8.5-10.1); CREATININE 0.7 mg/dL (0.7-1.3)
[2020-06-05 07:02] LABS: URINE BILIRUBIN NEGATIVE (Negative); URINE BLOOD TRACE (Negative); URINE CLARITY CLEAR; URINE GLUCOSE-RANDOM* NEGATIVE (Negative); URINE KETONES NEGATIVE (Negative); URINE LEUKOCYTES-REFLEX TRACE (Negative); URINE NITRITE-REFLEX NEGATIVE (Negative); URINE PROTEIN (DIPSTICK) TRACE (Negative); URINE UROBILINOGEN >= 8.0 E.U./dl (0.2-1.0)
[2020-06-05 07:04] LABS: POTASSIUM 3.8 mmol/L (3.5-5.1)
[2020-06-05 07:05] LABS: URINE COLOR LIGHT AMBER
[2020-06-05 08:30] VITALS: BP 166/110
[2020-06-05] MEDS ORDERED: LEVAQUIN 500 M500 MG PO ×2 (08:32→08:45)
== END 2020-06-05 08:42 | disposition home or self-care (01) ==
LOC: ER 05:25
PROVIDERS: Emergency Medicine
DX: N45.3 Epididymo-orchitis (principal); Z79.2 Long term (current) use of antibiotics; Z79.899 Other long term (current) drug therapy; Z88.8 Allergy status to other drugs, medicaments and biological substances; Z91.018 Allergy to other foods; Z91.030 Bee allergy status; Z87.891 Personal history of nicotine dependence

== ENCOUNTER 2021-01-19 14:29 | Emergency (ER) | payer OTHER ==
[~2021-01-19] VITALS: Ht 177.8 cm; Wt 244.9 kg
[~2021-01-19 14:29] MED LIST changes: +LEVAQUIN 500 M500 MG PO
[2021-01-19 15:33] LABS: ABSOLUTE NEUTROPHILS 5.3 thou/uL (1.4-8.2); BASOPHILS 1.1 % (0.0-2.0); EOSINOPHILS 1.9 % (0.0-3.0); HEMATOCRIT 43.5 % (42.0-52.0); HEMOGLOBIN 14.6 gm/dL (14.0-18.0); LYMPHOCYTES 24.8 % (24.0-44.0); MCH 29.9 pg (26.0-34.0); MCHC 33.5 g/dL (28.0-37.0); MCV 89.3 fL (80.0-100.0); MONOCYTES 8.3 % (1.0-8.0); PLATELET COUNT 238 thou/uL (150-400); POLYS 63.9 % (36.0-66.0); RBC 4.86 mil/uL (4.50-6.00); RDW 14.1 % (10.5-14.5); WBC 8.3 thou/uL (4.0-11.0)
[2021-01-19 15:41] LABS: CALCIUM 8.5 mg/dL (8.5-10.1); CREATININE 0.8 mg/dL (0.7-1.3)
[2021-01-19 15:48] LABS: ALBUMIN 3.3 g/dL (3.4-5.0); TOTAL BILIRUBIN 0.4 mg/dL (0.2-1.0); TOTAL PROTEIN 7.2 g/dL (6.4-8.2)
[2021-01-19] MEDS ORDERED: CLEOCIN HCL300 MG PO (16:41)
[2021-01-19 16:43] VITALS: BP 115/67
== END 2021-01-19 17:25 | disposition home or self-care (01) ==
LOC: ER 14:29
PROVIDERS: Emergency Medicine
DX: S81.802A Unspecified open wound, left lower leg, initial encounter (principal); E66.01 Morbid (severe) obesity due to excess calories; F41.9 Anxiety disorder, unspecified; E78.00 Pure hypercholesterolemia, unspecified; Z87.891 Personal history of nicotine dependence; Z91.030 Bee allergy status; Z91.02 Food additives allergy status; Z88.6 Allergy status to analgesic agent; X58.XXXA Exposure to other specified factors, initial encounter; Y93.89 Activity, other specified; Y92.89 Other specified places as the place of occurrence of the external cause; Y99.8 Other external cause status

== ENCOUNTER → 2021-01-29 | Outpatient (CLI) | payer OTHER ==
[~2021-01-29] MED LIST changes: +CLEOCIN HCL300 MG PO
== END ==
LOC: HYPER 07:39
PROVIDERS: ATTEND Emergency Medicine
DX: I89.0 Lymphedema, not elsewhere classified (principal); L03.116 Cellulitis of left lower limb; E66.01 Morbid (severe) obesity due to excess calories; E78.00 Pure hypercholesterolemia, unspecified; I10 Essential (primary) hypertension; G47.30 Sleep apnea, unspecified; J45.909 Unspecified asthma, uncomplicated; M16.0 Bilateral primary osteoarthritis of hip; F12.90 Cannabis use, unspecified, uncomplicated; F32.9 Major depressive disorder, single episode, unspecified; F41.9 Anxiety disorder, unspecified; Z87.891 Personal history of nicotine dependence; Z86.14 Personal history of Methicillin resistant Staphylococcus aureus infection; Z68.45 Body mass index [BMI] 70 or greater, adult

== ENCOUNTER 2021-06-11 07:55 | Emergency (ER) | payer OTHER ==
[~2021-06-11] VITALS: Ht 177.8 cm; Wt 247.2 kg
--- NOTE | ~2021-06-11 | EMS ---
[facility] [address] [place] [address] EMS Patient Care Report Name: IDRIS FORBES Room #: DEP Kat#: [id number] Admission: 06/11/21 Attend Phys: Discharge: 06/11/21 Date of : 71 Report #: [id number] THIS REPORT FOR: //name// Report Transmitted: 06/13/2021 10:16 EMS Care Summary [place], [place]/[facility] Incident [phone] @ 06/11/2021 07:19 Incident Location [address] [place], [place] [id number] Patient IDRIS FORBES Male, 45 Years 1975 Patient Address [address] [place], [place] [id number] Patient History Edema, Patient Allergies No known allergies, Patient Medications None Reported, Chief Complaint COUGH, CONGESTION, AND WEAKNESS Disposition Transported No Lights/[place] Dispatch Reason Breathing Problem Transported To [facility] Narrative UPON ARRIVAL WE FOUND OUR MORBIDLY OBESE 45 YEAR OLD MALE PATIENT AMBULATING IN THE UNKEMPT BASEMENT OF A RESIDENCE WITH HIS DAUGHTER BY HIS SIDE COMPLAINING OF A COUGH, CONGESTION, AND WEAKNESS SINCE AROUND GIOVANNY (2 WEEKS). THE PATIENT IS NOT VACCINATED AGAINST COVID-19, BUT HE DENIES ANY KNOWN COVID [facility] [address] [place] [address] EMS Patient Care Report Name: IDRIS FORBES Room #: DEP ER CharissaJori#: [id number] Admission: 06/11/21 Attend Phys: Discharge: 06/11/21 Date of : 71 Report #: [id number] EXPOSURE. THE PATIENT REQUESTS TRANSPORT TO [facility] FOR EVALUATION. Initial Vitals @07:33P: 135,CO: 1,SpO2: 100, @07:34P: 162,SpO2: 95, @07:36P: 192,SpO2: 94, @07:38P: 68,R: 18,BP: 150/100,Pain: 0/10,GCS: 15,SpO2: 100,Revised Trauma: 12,SC Suspected: false @07:45P: 64,R: 20,BP: 160/110,Pain: 0/10,GCS: 15,SpO2: 96,Revised Trauma: 12,SC Suspected: false @07:31P: 70,R: 24,BP: 156/106,Pain: 0/10,GCS: 15,Glucose: 110,SpO2: 80,Revised Trauma: 12,SC Suspected: false Assessments @07:26MENTAL:Event Oriented,Person Oriented,Place Oriented,Time Oriented,SKIN:HEENT:Eyes: Right Pupil: 4-mm,Eyes: Left Pupil: 4-mm,Head/Face: No Abnormalities,Neck/Airway: No Abnormalities,LUNG SOUNDS:General: No Abnormalities,ABDOMEN:General: No Abnormalities,PELVIS//GI:No Abnormalities,EXTREMITIES:Right Leg: Edema,Left Leg: Edema,Left Arm: No Abnormalities,Right Arm: No Abnormalities,PULSE:Radial: 2+ Normal,NEURO:No Abnormalities, Impression Acute Respiratory Distress (Dyspnea) Procedures @07:26 ALS Assessment Response: UnchangedSucceeded @07:31 3-Lead ECG Response: UnchangedSucceeded @07:27 Oxygen FlowRate: 3 Device: Nasal Cannula (NC) Response: UnchangedSucceeded Timeline 07:17,Call Received 07:17,Dispatch Notified 07:19,Dispatched 07:20,En Route 07:23,On Scene 07:26,At Patient 07:26,ALS Assessment,Response: UnchangedSucceeded, 07:27,Oxygen FlowRate: 3 Device: Nasal Cannula (NC) Response: UnchangedSucceeded, 07:31,3-Lead ECG,Response: UnchangedSucceeded, 07:31,BP: 156/106 M,PULSE: 70,RR: 24 R,SPO2: 80 Ox,ETCO2: ,B,PAIN: 0,GCS: 15, 07:33,BP: / M,PULSE: 135,RR: R,SPO2: 100 Ox,ETCO2: ,BG: ,PAIN: ,GCS: , [address] [address] EMS Patient Care Report Name: IDRIS FORBES MICHAEL [facility] [id number] Admission: 06/11/21 Attend Phys: Discharge: 06/11/21 Date of : 71 Report #: [id number] 07:34,BP: / M,PULSE: 162,RR: R,SPO2: 95 Ox,ETCO2: ,BG: ,PAIN: ,GCS: , 07:34,Depart Scene 07:36,BP: / M,PULSE: 192,RR: R,SPO2: 94 Ox,ETCO2: ,BG: ,PAIN: ,GCS: , 07:38,BP: 150/100 M,PULSE: 68,RR: 18 R,SPO2: 100 Ox,ETCO2: ,BG: ,PAIN: 0,GCS: 15, 07:45,BP: 160/110 M,PULSE: 64,RR: 20 R,SPO2: 96 Ox,ETCO2: ,BG: ,PAIN: 0,GCS: 15, 07:46,At Destination 08:12,Call Closed Disclaimer v1.1 Copyright 2021 [employer] This EMS Care Summary contains data elements from the applicable legal record (which may be displayed differently). It is designed to provide pertinent information for the following purposes: continuity of care, clinical quality, and state data reporting. The complete legal record is available to ED staff and administrators of the receiving hospital in [employer] Patient Tracker. All data is provided "as is."
[2021-06-11 10:04] LABS: ABSOLUTE NEUTROPHILS 7.8 thou/uL (1.4-8.2); BASOPHILS 0.7 % (0.0-2.0); HEMOGLOBIN 12.3 gm/dL (14.0-18.0); LYMPHOCYTES 10.1 % (24.0-44.0); MCH 29.5 pg (26.0-34.0); MCHC 33.3 g/dL (28.0-37.0); MCV 88.6 fL (80.0-100.0); MONOCYTES 6.8 % (1.0-8.0); PLATELET COUNT 261 thou/uL (150-400); POLYS 81.4 % (36.0-66.0); RBC 4.18 mil/uL (4.50-6.00); RDW 14.4 % (10.5-14.5); WBC 9.6 thou/uL (4.0-11.0)
[2021-06-11 10:15] LABS: ANION GAP 8 mmol/L (7-16); BUN 9 mg/dL (7-18); CALCIUM 8.7 mg/dL (8.5-10.1); CHLORIDE 100 mmol/L (98-107); CO2 31 mmol/L (21-32); CREATININE 0.6 mg/dL (0.7-1.3); GLUCOSE 109 mg/dL (74-106); SODIUM 139 mmol/L (136-145)
[2021-06-11 10:22] LABS: DIRECT BILIRUBIN < 0.1 mg/dL (<0.1-0.2); LIPASE 51 U/L (73-393); SGOT 21 U/L (15-37); SGPT 28 U/L (30-65); TOTAL BILIRUBIN 0.2 mg/dL (0.2-1.0); TOTAL PROTEIN 7.4 g/dL (6.4-8.2)
[2021-06-11] MEDS ORDERED: DOXYCYCLINE 10100 MG PO (10:48)
[2021-06-11 12:03] VITALS: BP 147/85
== END 2021-06-11 12:45 | disposition home or self-care (01) ==
LOC: ER 07:55
PROVIDERS: Student in an Organized Health Care Education/Training Program
DX: I89.0 Lymphedema, not elsewhere classified (principal); Z20.822 Contact with and (suspected) exposure to COVID-19; M79.662 Pain in left lower leg; M79.661 Pain in right lower leg; E66.01 Morbid (severe) obesity due to excess calories; F12.90 Cannabis use, unspecified, uncomplicated; Z87.891 Personal history of nicotine dependence; Z91.030 Bee allergy status; Z88.1 Allergy status to other antibiotic agents; Z79.899 Other long term (current) drug therapy

== ENCOUNTER 2021-06-15 08:17 | Emergency (ER) | payer OTHER ==
[~2021-06-15] VITALS: Ht 177.8 cm; Wt 247.2 kg
--- NOTE | ~2021-06-15 | EMS ---
[address] [address] EMS Patient Care Report Name: IDRIS FORBES Room #: DEP Kat#: [id number] Admission: 06/15/21 Attend Phys: Discharge: 06/15/21 Date of : 71 Report #: [id number] THIS REPORT FOR: //name// Report Transmitted: 06/19/2021 10:28 EMS Care Summary [place], [place]/[facility] Incident [id number] @ 06/15/2021 07:48 Incident Location [address] [place], [place] [id number] Patient IDRIS FORBES Male, 45 Years 1975 Patient Address [address] [place], [place] [id number] Patient History Morbid Obesity,Bronchitis Chronic,Edema, Patient Allergies Other drug allergy, Patient Medications Unknown, Chief Complaint edema Disposition Transported No Lights/[place] Dispatch Reason Chest Pain (Non-Traumatic) Transported To [facility] Narrative Patient has had lymphedema in both legs for over a month. The patient has not had relief despite visiting the ER. Patient states the pain has gotten worse in his legs since he was at the ER on Friday. He is requesting EMS transport to the ER. Patient states he is short of breath with exertion. He denies chest [address] [address] EMS Patient Care Report Name: IDRIS FORBES Room #: DEP ER CharissaJori#: [id number] Admission: 06/15/21 Attend Phys: Discharge: 06/15/21 Date of : 71 Report #: [id number] pain. Patient rests comfortably on the cot during transport while being monitored. Patient report is given and signed to receiving RN. Initial Vitals @08:08P: 90,R: 22,BP: 159/89,Pain: 10/10,GCS: 15,CO: 6,SpO2: 95,Revised Trauma: 12,OR Suspected: false @08:00P: 74,R: 22,BP: 163/85,Pain: 10/10,GCS: 15,SpO2: 95,Revised Trauma: 12,OR Suspected: false Assessments @07:54MENTAL:Person Oriented,Place Oriented,Time Oriented,Event Oriented,SKIN:HEENT:Eyes: Right Pupil: 4-mm,Eyes: Left Pupil: 4-mm,LUNG SOUNDS:ABDOMEN:PELVIS//GI:EXTREMITIES:Left Arm: Edema,Right Arm: Edema,Capillary Refill: Left Upper: 4 Sec,Left Leg: Edema,Capillary Refill: Right Upper: 4 Sec,Right Leg: Edema,PULSE:Radial: 2+ Normal,NEURO:@08:10MENTAL:Time Oriented,Place Oriented,Person Oriented,Event Oriented,SKIN:HEENT:Eyes: Right Pupil: 4-mm,Eyes: Left Pupil: 4-mm,LUNG SOUNDS:ABDOMEN:PELVIS//GI:EXTREMITIES:Capillary Refill: Left Upper: 4 Sec,Capillary Refill: Right Upper: 4 Sec,Right Leg: Edema,Left Leg: Edema,Right Arm: Edema,Left Arm: Edema,PULSE:Radial: 2+ Normal,NEURO: Impression Edema Procedures @07:54 ALS Assessment Response: UnchangedSucceeded @08:00 3-Lead ECG Response: UnchangedSucceeded Timeline 07:46,Call Received 07:46,Dispatch Notified 07:48,Dispatched 07:49,En Route 07:53,On Scene 07:54,At Patient 07:54,ALS Assessment,Response: UnchangedSucceeded, 08:00,BP: 163/85 M,PULSE: 74,RR: 22 R,SPO2: 95 Ox,ETCO2: ,BG: ,PAIN: 10,GCS: 15, 08:00,3-Lead ECG,Response: UnchangedSucceeded, 08:04,Depart Scene 08:08,BP: 159/89 M,PULSE: 90,RR: 22 R,SPO2: 95 Ox,ETCO2: ,BG: ,PAIN: 10,GCS: 15, 08:28,At Destination 08:29,Call Closed [address] [address] EMS Patient Care Report Name: IDRIS FORBES Room #: DEP Kat#: [id number] Admission: 06/15/21 Attend Phys: Discharge: 06/15/21 Date of : 71 Report #: [id number] Disclaimer v1.1 Copyright 2021 [employer] This EMS Care Summary contains data elements from the applicable legal record (which may be displayed differently). It is designed to provide pertinent information for the following purposes: continuity of care, clinical quality, and state data reporting. The complete legal record is available to ED staff and administrators of the receiving hospital in [facility]'s Patient Tracker. All data is provided "as is."
[~2021-06-15 08:17] MED LIST changes: +DOXYCYCLINE 10100 MG PO
[2021-06-15 08:44] LABS: HEMATOCRIT 40.2 % (42.0-52.0); HEMOGLOBIN 12.9 gm/dL (14.0-18.0); MCHC 32.1 g/dL (28.0-37.0); MCV 90.4 fL (80.0-100.0); PLATELET COUNT 272 thou/uL (150-400); RBC 4.45 mil/uL (4.50-6.00); RDW 14.8 % (10.5-14.5); WBC 9.4 thou/uL (4.0-11.0)
[2021-06-15 08:59] LABS: CALCIUM 8.6 mg/dL (8.5-10.1); CREATININE 0.7 mg/dL (0.7-1.3); POTASSIUM 4.3 mmol/L (3.5-5.1)
[2021-06-15 09:04] LABS: ALBUMIN 3.2 g/dL (3.4-5.0); TOTAL BILIRUBIN 0.2 mg/dL (0.2-1.0); TOTAL PROTEIN 7.7 g/dL (6.4-8.2)
[2021-06-15 09:39] LABS: ABSOLUTE NEUTROPHILS 6.5 thou/uL (1.4-8.2); NUCLEATED RBCS 1 /100WBC; PLATELET ESTIMATE NORMAL
[2021-06-15] MEDS ORDERED: FUROSEMIDE 40 M40 MG PO (10:09)
[2021-06-15] MEDS ORDERED: HYDROCODON-ACE1 EAC7 PO (10:09)
--- NOTE | 2021-06-15 11:24 | EKG ---
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 : 1975 Requested By: Leon Klein Order Number: [id number] MD: Gilberto Cárdenas Measurements Intervals [place] Rate: 66 P: 53 AK: 183 QRS: -39 QRSD: 107 T: 58 QT: 411 QTc: 431 Interpretive Statements Sinus rhythm Inferior infarct, old Compared to ECG 04/16/2018 10:45:18 Sinus tachycardia no longer present Poor R-wave progression no longer present Myocardial infarct finding still present Electronically Signed On 06-15-2021 11:24:36 WORKERS' COMPENSATION MAGISTRATE by Gilberto Cárdenas [email or web address] <ELECTRONICALLY SIGNED> By: Gilberto Cárdenas MD, [facility] 06/15/21 1124 [id number] [id number] Gilberto Cárdenas MD, FACC /EPI
[2021-06-15 12:03] VITALS: BP 130/66
== END 2021-06-15 12:04 | disposition home or self-care (01) ==
LOC: ER 08:17
PROVIDERS: Emergency Medicine
DX: R60.0 Localized edema (principal); E66.01 Morbid (severe) obesity due to excess calories; F41.9 Anxiety disorder, unspecified; E78.00 Pure hypercholesterolemia, unspecified; Z87.891 Personal history of nicotine dependence; Z91.030 Bee allergy status; Z91.02 Food additives allergy status; Z88.8 Allergy status to other drugs, medicaments and biological substances

== ENCOUNTER 2021-07-01 17:30 | Inpatient (IN) | payer OTHER ==
[~2021-07-01] VITALS: Ht 177.8 cm; Wt 247.2 kg
[~2021-07-01 17:30] MED LIST changes: +FUROSEMIDE 40 M40 MG PO
[2021-07-01 17:31] VITALS: BP 139/82
[2021-07-01] MEDS ORDERED: TRAMADOL 50 MG50 MG PO (17:41)
[2021-07-01 18:05] LABS: ABSOLUTE NEUTROPHILS 7.2 thou/uL (1.4-8.2); BASOPHILS 0.5 % (0.0-2.0); EOSINOPHILS 1.3 % (0.0-3.0); HEMATOCRIT 42.3 % (42.0-52.0); HEMOGLOBIN 13.7 gm/dL (14.0-18.0); LYMPHOCYTES 14.8 % (24.0-44.0); MCHC 32.3 g/dL (28.0-37.0); MCV 89.7 fL (80.0-100.0); MONOCYTES 9.9 % (1.0-8.0); PLATELET COUNT 225 thou/uL (150-400); POLYS 73.5 % (36.0-66.0); RBC 4.71 mil/uL (4.50-6.00); RDW 14.7 % (10.5-14.5); WBC 9.8 thou/uL (4.0-11.0)
[2021-07-01 18:07] LABS: CALCIUM 9.3 mg/dL (8.5-10.1); CREATININE 0.7 mg/dL (0.7-1.3); POTASSIUM 4.3 mmol/L (3.5-5.1)
[2021-07-01 18:17] LABS: ALBUMIN 3.5 g/dL (3.4-5.0); TOTAL BILIRUBIN 0.5 mg/dL (0.2-1.0)
[2021-07-01 19:43] LABS: URINE BILIRUBIN NEGATIVE (Negative); URINE BLOOD NEGATIVE (Negative); URINE CLARITY CLEAR; URINE COLOR YELLOW; URINE GLUCOSE-RANDOM* NEGATIVE (Negative); URINE KETONES NEGATIVE (Negative); URINE LEUKOCYTES-REFLEX NEGATIVE (Negative); URINE NITRITE-REFLEX NEGATIVE (Negative); URINE PROTEIN (DIPSTICK) NEGATIVE (Negative); URINE SPECIFIC GRAVITY 1.025 (1.005-1.035); URINE UROBILINOGEN 0.2 E.U./dl (0.2-1.0)
[2021-07-02 04:58] LABS: CALCIUM 8.5 mg/dL (8.5-10.1); CREATININE 0.4 mg/dL (0.7-1.3)
[2021-07-02 05:13] LABS: POTASSIUM 5.4 mmol/L (3.5-5.1)
[2021-07-02 07:11] VITALS: BP 135/78
--- NOTE | 2021-07-02 07:33 | EKG ---
[address] [place] [address] ELECTROCARDIOGRAM REPORT Name: IDRIS FORBES Room #: 170-1 ADM IN M.R.#: [id number] Admission: 07/01/21 Attend Phys: Mirella Basilio MD Discharge: Date of : 71 Report #: [id number] [facility] ED Test Date: 2021-07-01 Test Time: 17:41:22 Pat Name: IDRIS FORBES Department: Room: 170 Gender: M A P Manager: RAUL MONTESINOS : 1975 Requested By: Nadya Mauricio Order Number: [id number] MD: Gilberto Cárdenas Measurements Intervals [place] Rate: 83 P: 54 MS: 201 QRS: -39 QRSD: 97 T: 70 QT: 369 QTc: 434 Interpretive Statements SINUS ARRHYTHMIA Multiform ventricular premature complexes Probable left atrial enlargement Anterolateral infarct, age indeterminate Compared to ECG 06/15/2021 08:40:06 Ventricular premature complex(es) now present Myocardial infarct finding still present Electronically Signed On 07-02-2021 7:33:11 TAX AUDIT MANAGER by Gilberto Cárdenas [email or web address] <ELECTRONICALLY SIGNED> By: Gilberto Cárdenas MD, [facility] 07/02/21 0733 [id number] Gilberto Cárdenas MD, [facility] /EPI
[2021-07-02 08:16] LABS: CALCIUM 8.6 mg/dL (8.5-10.1); CREATININE 0.4 mg/dL (0.7-1.3)
[2021-07-02 08:17] LABS: POTASSIUM 4.8 mmol/L (3.5-5.1)
[2021-07-02 18:05] VITALS: BP 121/63
[2021-07-02 18:15] VITALS: BP 136/75
[2021-07-02 19:38] VITALS: BP 107/67
[2021-07-03 05:13] VITALS: BP 134/81
[2021-07-03 06:26] LABS: HEMOGLOBIN 12.7 gm/dL (14.0-18.0); MCH 29.1 pg (26.0-34.0); MCHC 32.6 g/dL (28.0-37.0); MCV 89.2 fL (80.0-100.0); RBC 4.37 mil/uL (4.50-6.00); RDW 14.7 % (10.5-14.5); WBC 6.8 thou/uL (4.0-11.0)
[2021-07-03 06:34] LABS: CALCIUM 8.6 mg/dL (8.5-10.1); CREATININE 0.7 mg/dL (0.7-1.3)
[2021-07-03 06:36] LABS: POTASSIUM 3.7 mmol/L (3.5-5.1)
[2021-07-03 08:20] VITALS: BP 147/88
--- NOTE | 2021-07-03 10:33 | 2DMMODE ---
[facility] [address] [place] [address] 2 D/M-MODE ECHOCARDIOGRAM Name: IDRIS FORBES Room #: 437-P ADM IN M.R.#: [id number] Admission: 07/01/21 Attend Phys: Mirella Basilio MD Discharge: Date of : 71 Report #: [id number] THIS REPORT FOR: cc: Jean Corey MD, Neal A. MD Lammoglia, Francisco J. MD ~ APPROVED REPORT Study performed: 07/03/2021 09:50:01 EXAM: Comprehensive 2D, Doppler, and color-flow Echocardiogram Patient Location: Bedside Room #: [facility] Status: routine BSA: 3.20 HR: 71 bpm BP: 147/88 mmHg Rhythm: NSR Other Information Study Quality: Technically Difficult Technically limited study due to body habitus, inability to position patient. Indications Congestive Heart Failure Morbid obesity Echo Enhancing Agent Indication: Endocardial border delineation Agent(s) / Amount(s) Used: Optison 4 cc 2D Dimensions IVSd: 11.00 (7-11mm) LVOT Diam: 23.87 (18-24mm) LVDd: 61.30 mm PWd: 11.87 (7-11mm) Ascending Ao: 38.28 (22-36mm) LVDs: 44.98 (25-40mm) Left Atrium: 54.97 (27-40mm) Aortic Root: 38.87 mm IVC: 22.00 mm Aortic Valve AoV Peak Abner.: 1.15 m/s AO Peak Gr.: 5.25 mmHg LVOT Max P.57 mmHg LVOT Max V: 0.94 m/s [facility] [address] [place] [address] 2 D/M-MODE ECHOCARDIOGRAM Name: IDRSI FORBES Room #: 437-P [facility] IN M.R.#: [id number] Admission: 07/01/21 Attend Phys: Mirella Basilio, Discharge: Date of : 71 Report #: [id number] [place]ANCHAN Vmax: 3.69 cm2 Pulmonary Valve PV Peak Abner.: 1.07 m/s PV Peak Gr.: 4.56 mmHg Left Ventricle Left ventricle is dilated. There is normal left ventricular wall thickness. The left ventricular systolic function is normal. The left ventricular ejection fraction is within the normal range. LVEF is >55%. This study is not technically sufficient to allow evaluation of the LV diastolic function. Right Ventricle Right ventricle is grossly normal in size. Right ventricular systolic function is grossly normal. Atria Left atrium is dilated. Right atrium is dilated. Aortic Valve The aortic valve is normal in structure. No aortic regurgitation is present. There is no aortic valvular stenosis. Mitral Valve The mitral valve is normal in structure. There is no mitral valve regurgitation noted. No evidence of mitral valve stenosis. Tricuspid Valve Tricuspid valve is not well visualized. There is no tricuspid valve regurgitation noted. Pulmonic Valve Pulmonic valve is not well visualized. There is no pulmonic valvular regurgitation. Great Vessels The aortic root is normal in size. IVC is dilated and collapses >50% with inspiration. Pericardium There is no pericardial effusion. <Conclusion> Left ventricle is dilated. LVEF is >55%. Right ventricle is grossly normal in size. [facility] [address] [place] [address] 2 D/M-MODE ECHOCARDIOGRAM Name: IDRIS FORBES Room #: 437-P [facility] IN .R.#: [id number] Admission: 07/01/21 Attend Phys: Mirella Basilio, Discharge: Date of : 71 Report #: [id number] Left atrium is dilated. Right atrium is dilated. The aortic valve is normal in structure. The mitral valve is normal in structure. Tricuspid valve is not well visualized. Pulmonic valve is not well visualized. The aortic root is normal in size. There is no pericardial effusion. <ELECTRONICALLY SIGNED> By: Yovany Morillo MD 07/03/21 1032 31 31 Yovany Morillo MD /INF
[2021-07-03 14:39] VITALS: BP 147/88
[2021-07-03] MEDS ORDERED: LASIX 40 MG TAB40 MG PO (14:46)
[2021-07-03 20:21] VITALS: BP 136/59
== END 2021-07-03 21:00 | disposition home health service (06) | DRG 292 ==
LOC: ER 17:30 → EROBS 20:27 → 4S 20:27
PROVIDERS: Hospitalist; Nurse Practitioner Family; Physician Assistant; ADMIT Internal Medicine; ATTEND Internal Medicine
PROC: 5A09357 Assistance with Respiratory Ventilation, Less than 24 Consecutive Hours, Continuous Positive Airway Pressure (ICD-10-PCS; principal; 2021-07-01)
PROC: 5A09357 Assistance with Respiratory Ventilation, Less than 24 Consecutive Hours, Continuous Positive Airway Pressure (ICD-10-PCS; 2021-07-03)
DX: I50.31 Acute diastolic (congestive) heart failure (principal); Z68.45 Body mass index [BMI] 70 or greater, adult; R79.1 Abnormal coagulation profile; E66.01 Morbid (severe) obesity due to excess calories; Z20.822 Contact with and (suspected) exposure to COVID-19; F41.9 Anxiety disorder, unspecified; E78.00 Pure hypercholesterolemia, unspecified; G89.29 Other chronic pain; I87.8 Other specified disorders of veins; M54.9 Dorsalgia, unspecified; E78.5 Hyperlipidemia, unspecified; F32.9 Major depressive disorder, single episode, unspecified; G47.33 Obstructive sleep apnea (adult) (pediatric); K29.70 Gastritis, unspecified, without bleeding; Z79.899 Other long term (current) drug therapy; Z86.14 Personal history of Methicillin resistant Staphylococcus aureus infection; Z88.8 Allergy status to other drugs, medicaments and biological substances; Z87.891 Personal history of nicotine dependence
CPT/HCPCS: 10100

== ENCOUNTER 2021-07-22 14:25 | Inpatient (IN) | payer OTHER ==
[~2021-07-22] VITALS: Ht 177.8 cm; Wt 247.2 kg
--- NOTE | ~2021-07-22 | EMS ---
[address] [address] EMS Patient Care Report Name: IDRIS FORBES Room #: 434-P ADM IN M.R.#: [id number] Admission: 07/22/21 Attend Phys: Mirella Basilio MD Discharge: Date of : 71 Report #: [id number] THIS REPORT FOR: //name// Report Transmitted: 07/23/2021 13:27 EMS Care Summary [place], [place]/[facility] Incident [id number] @ 07/22/2021 13:48 Incident Location [address] [place], [place] [id number] Patient IDRIS FORBES Male, 46 Years 1975 Patient Address [address] [place] [address] Patient History Morbid Obesity,Bronchitis Chronic,Edema, Patient Allergies Other drug allergy, Patient Medications Furosemide, Meloxicam, Tramadol, Doxycycline, Chief Complaint edema in legs Disposition Transported No Lights/[place] Dispatch Reason Breathing Problem Transported To [facility] Narrative pt presents seated in chair stating he can't walk due to his leg swelling. p37 states they ran pt approx 2 weeks ago and his left leg is now double the size that it was then. pt states he stopped taking his lasix 2 days ago, upon looking at pt meds he has a full bottle of lasix filled on 07/03/21 with all [address] [address] EMS Patient Care Report Name: IDRIS FORBES Room #: 434-P ADM IN M.R.#: [id number] Admission: 07/22/21 Attend Phys: Mirella Basilio MD Discharge: Date of : 71 Report #: [id number] pills present in bottle. pt became agitated upon seeing medic look at meds, and stated he hadnt been able to get his rx filled timely. pt assisted approx 10 feet to stretcher, and secured with lower seatbelt (upper seatbelt would not fit patient) and rails up x 2. transported without change, care transferred to ed staff on arrival. Initial Vitals @14:08P: 75,BP: 159/96,SpO2: 93, @14:09P: 77,R: 24,BP: 169/133,Pain: 0/10,GCS: 15,CO: 5,SpO2: 94,Revised Trauma: 12, Assessments @13:55MENTAL:No Abnormalities,SKIN:HEENT:Head/Face: No Abnormalities,LUNG SOUNDS:General: No Abnormalities,ABDOMEN:General: No Abnormalities,PELVIS//GI:EXTREMITIES:Right Leg: Other,Left Leg: Edema,Right Leg: Edema,Left Arm: No Abnormalities,Right Arm: No Abnormalities,PULSE:Radial: 2+ Normal,NEURO:No Abnormalities, Impression Pitting Edema Procedures @13:55 ALS Assessment Response: UnchangedSucceeded Timeline 13:42,Call Received 13:42,Dispatch Notified 13:48,Dispatched 13:48,En Route 13:54,On Scene 13:55,At Patient 13:55,ALS Assessment,Response: UnchangedSucceeded, 14:08,BP: 159/96 M,PULSE: 75,RR: R,SPO2: 93 Ox,ETCO2: ,BG: ,PAIN: ,GCS: , 14:09,BP: 169/133 M,PULSE: 77,RR: 24 R,SPO2: 94 Ox,ETCO2: ,BG: ,PAIN: 0,GCS: 15, 14:10,Depart Scene 14:32,At Destination 14:35,Call Closed Disclaimer v1.1 Copyright 2021 [employer] This EMS Care Summary contains data elements from the applicable legal record (which may be displayed differently). It is designed to provide pertinent information for the following purposes: continuity of care, clinical quality, and state data reporting. The complete legal [place] [address] EMS Patient Care Report Name: IDRIS FORBES Room #: 434-P ADM IN M.R.#: [id number] Admission: 07/22/21 Attend Phys: Mirella Basilio MD Discharge: Date of : 71 Report #: [id number] and administrators of the receiving hospital in ES's Patient Tracker. All data is provided "as is."
--- NOTE | ~2021-07-22 | EMS ---
[address] [address] EMS Patient Care Report Name: IDRIS FORBES Room #: 434-P ADM IN M.R.#: [id number] Admission: 07/22/21 Attend Phys: Mirella Basilio MD Discharge: Date of : 71 Report #: [id number] THIS REPORT FOR: //name// Report Transmitted: 07/25/2021 16:21 EMS Care Summary [place], [place]/[facility] Incident [id number] @ 07/22/2021 13:48 Incident Location [address] [place], [place] [id number] Patient IDRIS FORBES Male, 46 Years 1975 Patient Address [address] [place] [address] Patient History Morbid Obesity,Bronchitis Chronic,Edema, Patient Allergies Other drug allergy, Patient Medications Furosemide, Meloxicam, Tramadol, Doxycycline, Chief Complaint edema in legs Disposition Transported No Lights/[place] Dispatch Reason Breathing Problem Transported To [facility] Narrative pt presents seated in chair stating he can't walk due to his leg swelling. p37 states they ran pt approx 2 weeks ago and his left leg is now double the size that it was then. pt states he stopped taking his lasix 2 days ago, upon looking at pt meds he has a full bottle of lasix filled on 07/03/21 with all [address] [address] EMS Patient Care Report Name: IDRIS FORBES Room #: 434-P ADM IN M.R.#: [id number] Admission: 07/22/21 Attend Phys: Mirella Basilio MD Discharge: Date of : 71 Report #: [id number] pills present in bottle. pt became agitated upon seeing medic look at meds, and stated he hadnt been able to get his rx filled timely. pt assisted approx 10 feet to stretcher, and secured with lower seatbelt (upper seatbelt would not fit patient) and rails up x 2. transported without change, care transferred to ed staff on arrival. Initial Vitals @14:08P: 75,BP: 159/96,SpO2: 93, @14:09P: 77,R: 24,BP: 169/133,Pain: 0/10,GCS: 15,CO: 5,SpO2: 94,Revised Trauma: 12, Assessments @13:55MENTAL:No Abnormalities,SKIN:HEENT:Head/Face: No Abnormalities,LUNG SOUNDS:General: No Abnormalities,ABDOMEN:General: No Abnormalities,PELVIS//GI:EXTREMITIES:Right Leg: Other,Left Leg: Edema,Right Leg: Edema,Left Arm: No Abnormalities,Right Arm: No Abnormalities,PULSE:Radial: 2+ Normal,NEURO:No Abnormalities, Impression Pitting Edema Procedures @13:55 ALS Assessment Response: UnchangedSucceeded Timeline 13:42,Call Received 13:42,Dispatch Notified 13:48,Dispatched 13:48,En Route 13:54,On Scene 13:55,At Patient 13:55,ALS Assessment,Response: UnchangedSucceeded, 14:08,BP: 159/96 M,PULSE: 75,RR: R,SPO2: 93 Ox,ETCO2: ,BG: ,PAIN: ,GCS: , 14:09,BP: 169/133 M,PULSE: 77,RR: 24 R,SPO2: 94 Ox,ETCO2: ,BG: ,PAIN: 0,GCS: 15, 14:10,Depart Scene 14:32,At Destination 14:35,Call Closed Disclaimer v1.1 Copyright 2021 [employer] This EMS Care Summary contains data elements from the applicable legal record (which may be displayed differently). It is designed to provide pertinent information for the following purposes: continuity of care, clinical quality, and state data reporting. The complete [place] [address] EMS Patient Care Report Name: IDRIS FORBES Room #: 434-P ADM IN M.R.#: [id number] Admission: 07/22/21 Attend Phys: Mirella Basilio MD Discharge: Date of : 71 Report #: [id number] and administrators of the receiving hospital in ES's Patient Tracker. All data is provided "as is."
[~2021-07-22 14:25] MED LIST changes: +TRAMADOL 50 MG50 MG PO
[2021-07-22 14:26] VITALS: BP 129/77
[2021-07-22 14:56] LABS: ABSOLUTE NEUTROPHILS 5.6 thou/uL (1.4-8.2); BASOPHILS 0.9 % (0.0-2.0); EOSINOPHILS 2.2 % (0.0-3.0); HEMATOCRIT 38.7 % (42.0-52.0); HEMOGLOBIN 12.9 gm/dL (14.0-18.0); LYMPHOCYTES 19.7 % (24.0-44.0); MCH 29.4 pg (26.0-34.0); MCHC 33.2 g/dL (28.0-37.0); MCV 88.3 fL (80.0-100.0); MONOCYTES 10.1 % (1.0-8.0); PLATELET COUNT 221 thou/uL (150-400); POLYS 67.1 % (36.0-66.0); RBC 4.38 mil/uL (4.50-6.00); RDW 14.2 % (10.5-14.5); WBC 8.4 thou/uL (4.0-11.0)
[2021-07-22 15:02] LABS: CALCIUM 8.7 mg/dL (8.5-10.1); CREATININE 0.7 mg/dL (0.7-1.3); POTASSIUM 3.7 mmol/L (3.5-5.1)
[2021-07-22 15:11] LABS: ALBUMIN 3.2 g/dL (3.4-5.0); TOTAL BILIRUBIN 0.4 mg/dL (0.2-1.0); TOTAL PROTEIN 7.5 g/dL (6.4-8.2)
[2021-07-22 15:23] LABS: URINE BILIRUBIN NEGATIVE (Negative); URINE BLOOD NEGATIVE (Negative); URINE CLARITY SL CLOUDY; URINE COLOR YELLOW; URINE GLUCOSE-RANDOM* NEGATIVE (Negative); URINE KETONES NEGATIVE (Negative); URINE LEUKOCYTES-REFLEX NEGATIVE (Negative); URINE NITRITE-REFLEX NEGATIVE (Negative); URINE PROTEIN (DIPSTICK) NEGATIVE (Negative); URINE SPECIFIC GRAVITY >= 1.030 (1.005-1.035); URINE UROBILINOGEN 0.2 E.U./dl (0.2-1.0)
[2021-07-22 21:21] VITALS: BP 135/75
--- NOTE | 2021-07-23 04:20 | NUR ---
PT ARRIVED ON UNIT AT 2230 FROM ER. ADMITTED WITH BILAT LE CELLULITIS AND LYMPHEDEMA. VALERA IN PLACE. BARIATRIC BED DESPERATELY NEEDED. FREQUENT OBSERVATION.
[2021-07-23 06:22] LABS: ABSOLUTE NEUTROPHILS 13.1 thou/uL (1.4-8.2); BASOPHILS 0.2 % (0.0-2.0); EOSINOPHILS 0.1 % (0.0-3.0); HEMATOCRIT 43.7 % (42.0-52.0); HEMOGLOBIN 14.1 gm/dL (14.0-18.0); LYMPHOCYTES 5.7 % (24.0-44.0); MCH 29.1 pg (26.0-34.0); MCHC 32.3 g/dL (28.0-37.0); MCV 90.1 fL (80.0-100.0); MONOCYTES 5.6 % (1.0-8.0); PLATELET COUNT 256 thou/uL (150-400); POLYS 88.4 % (36.0-66.0); RBC 4.85 mil/uL (4.50-6.00); RDW 14.9 % (10.5-14.5); WBC 14.9 thou/uL (4.0-11.0)
[2021-07-23 06:37] LABS: ALBUMIN 3.3 g/dL (3.4-5.0); CALCIUM 8.7 mg/dL (8.5-10.1); CREATININE 0.5 mg/dL (0.7-1.3); PHOSPHORUS 4.3 mg/dL (2.6-4.7); TOTAL BILIRUBIN 0.6 mg/dL (0.2-1.0); TOTAL PROTEIN 7.5 g/dL (6.4-8.2)
[2021-07-23 06:40] LABS: POTASSIUM 3.9 mmol/L (3.5-5.1)
--- NOTE | 2021-07-23 07:40 | EKG ---
[address] [place] [address] ELECTROCARDIOGRAM REPORT Name: IDRIS FORBES Room #: 434-P ADM IN M.R.#: [id number] Admission: 07/22/21 Attend Phys: Mirella Basilio MD Discharge: Date of : 71 Report #: [id number] [facility] ED Test Date: 2021-07-22 Test Time: 14:45:06 Pat Name: IDRIS FORBES Department: Room: 434 Gender: M Tobacco Sorter: EMMETT : 1975 Requested By: Tobi Decker Order Number: [id number] MD: Gilberto Cárdenas Measurements Intervals [place] Rate: 74 P: 52 PA: 213 QRS: -45 QRSD: 113 T: 58 QT: 404 QTc: 449 Interpretive Statements Sinus rhythm Prolonged PA interval Borderline IVCD with LAD Inferior infarct, old Anterior infarct, old Compared to ECG 07/01/2021 17:41:22 First degree AV block now present Sinus arrhythmia no longer present Ventricular premature complex(es) no longer present Myocardial infarct finding still present Electronically Signed On 07-23-2021 7:40:40 MANAGER PRIVATE by Gilberto Cárdenas [email or web address] <ELECTRONICALLY SIGNED> By: Gilberto Cárdenas MD, FACC 07/23/21 0740 1445 1445 Gilberto Cárdenas MD, [facility] /EPI
[2021-07-23 08:22] VITALS: BP 148/86
--- NOTE | 2021-07-23 10:18 | NUR ---
A/O X 4, ROOM AIR, BEDBOUND, LEFT FOREARM AND CHEST PIV BILATERAL LEG LYMPEDEMA AND CELLULITIS-RED, WARM. LAST BM TODAY, N/V DR. CHOPRA MADE AWARE AND ZOCARLEEN ADDED TO EMAR AND GIVEN, TRAMADOL GIVEN FOR ABD PAIN 11/09. 2 BOUTS OF VOMITING. HIS NEW LOW AIR LOSS BED CAME AND STAFF WILL TRANSFER HIM OVER TO IT.
[2021-07-23 16:00] VITALS: BP 152/87
[2021-07-23 20:02] VITALS: BP 117/58
--- NOTE | 2021-07-24 05:21 | NUR ---
ASSUMED PT CARE THIS PM.PT IS ALERT AND ORIENTED X4. PT WAS ON 3L OF O2 VIA NC AND HAD CPAP ON AT NIGHT. VALERA IN PLACE. PT DID NOT C/O PAIN. MEDS WERE GIVEN PER EMAR ORDERS. FALL PRECAUTIONS IN PLACE. WILL CONTINUE TO MONITOR.
[2021-07-24 07:20] VITALS: BP 124/62
--- NOTE | 2021-07-24 07:55 | HC ---
[facility] [place] [address] CONSULTATION Name: IDRIS FORBES Room #: 434-P ADM IN M.R.#: [id number] Admission: 07/22/21 Attend Phys: Mirella Basilio MD Discharge: Date of : 71 Report #: [id number] THIS REPORT FOR: cc: Jean Corey MD, Neal A. MD Barry, Joseph W. MD ~ DATE OF SERVICE: 07/23/2021 INFECTIOUS DISEASE CONSULTATION ATTENDING PHYSICIAN: Dr. Basilio. REASON FOR EVALUATION: Left lower extremity inflammatory eruption, likely multifactorial, has known lymphedema as well as venous stasis insufficiency, likely has had recurrent cellulitis as well who was recently hospitalized with chest related pain and discomfort and dyspnea. HISTORY OF PRESENT ILLNESS: He is a 46-year-old gentleman with morbid obesity, reportedly has weight in the 600 pound range, who found it increasingly difficult to walk. He noted he had been given some diuretic, in spite of that, he was having overt drainage from lower extremities, developed what appeared to be an ulcerative lesion on the distal medial pretibial site, subsequently developed malodor. He did have some chills and it is increasingly difficult for him to ambulate, although at baseline, apparently uses a cane. Evaluation was undertaken in the emergency room. Coronavirus testing was negative. Lactic acid 1.0. Chest x-ray showed no consolidation, although did have cardiomegaly. BNP was 181. Procalcitonin less than 0.05. Urinalysis was unremarkable. Blood cultures collected at the time of admission are sterile thus far. Wound culture is pending, although Gram stain showed gram-negative rods, gram-positive rods, gram-positive cocci. Review of previous cultures had been 18 months ago, did have only isolation of Corynebacterium. Previous to that, had Staphylococcus aureus and group C strep. Additional issues, he notes he has difficulty with breathing while lying flat and also although not attributable since his hospitalization, he has had ongoing issues with nausea, emesis, felt to be gastritis. There was some concern about possible adverse drug effect. He was empirically started on combination antibiotics with cefepime and vancomycin. He is scheduled to undergo imaging of the abdomen. ALLERGIES: LISTED TO ZOSYN, ENOXAPARIN. CURRENT MEDICATIONS: Include famotidine, nystatin, furosemide, heparin, ondansetron, vancomycin, cefepime, tramadol, p.r.n. fentanyl and morphine as required. PAST MEDICAL HISTORY: As described above, morbid obesity, anxiety, depression, chronic pain syndrome involving the back, lymphedema of lower extremities, left [address] [address] CONSULTATION Name: IDRIS FORBES Room #: 434-P ADM IN M.R.#: [id number] Admission: 07/22/21 Attend Phys: Mirella Basilio MD Discharge: Date of : 71 Report #: [id number] greater than right, recurrent skin and soft tissue infection with cellulitis, venous stasis insufficiency, suspected sleep apnea, has a cardiomyopathy, history of congestive heart failure. SOCIAL HISTORY: He is disabled, former smoker, does use marijuana. No ethanol. FAMILY HISTORY: Noncontributory. REVIEW OF SYSTEMS: Otherwise, as noted above. PHYSICAL EXAMINATION: GENERAL: He is alert, cooperative. He is again morbidly obese. He is in cdjt-ro-aomypxle respiratory distress, in the supine position, apparently flat at this point. VITAL SIGNS: Temperature 97.8, pulse 77, respirations 18, blood pressure 148/86. SKIN: Warm, dry, no rashes. HEENT: Normocephalic. Extraocular muscles intact. NECK: Appears to be supple. LUNGS: Diminished breath sounds throughout. HEART: Distant. I do not appreciate a murmur. ABDOMEN: Large pannus, firm. No evident peritoneal signs. EXTREMITIES: Lower extremities have marked edema/lymphedema in particular on the left has chronic dermopathy, has an area medial distally on the pretibial site, appears to be malodorous purulent type drainage. He is tender to palpation. There is moderate degree of superficial inflammatory signs. GENITOURINARY AND RECTAL: Deferred. LABORATORY DATA: As described above. Most recent CBC: White count of 14.9, H and H 14.1 and 43.7, 256 platelets. Electrolytes: Sodium 135, potassium 3.9, chloride 100, bicarbonate is 26, anion gap of 9, BUN and creatinine 12 and 0.5. LFTs unremarkable. Albumin 33, total protein 7.5, estimated GFR of 177. Right knee x-ray, no acute fracture or malalignment, some moderate osteoarthritis. Urinalysis unremarkable. ASSESSMENT AND PLAN: Left lower extremity inflammatory eruption. It is certainly multifactorial etiology given the recent events, I suspect there is a component of skin and soft tissue infection. Has a history of methicillin-resistant Staphylococcus aureus. Also noted to have Staphylococcus and strep. We will continue broad-spectrum therapy with vancomycin, cefepime, should give us reasonable coverage. Cultures pending. Gram stain did show multiple polymicrobial growth. Secondly, has orthopnea, underlying cardiomyopathy with heart failure certainly at risk for complications such as aspiration pneumonitis. We will add incentive spirometry. He is being evaluated for nausea and emesis. Given his large size, it is a difficult [facility] [address] [place] [address] CONSULTATION Name: IDRIS FORBES Room #: 434-P ADM IN M.R.#: [id number] Admission: 07/22/21 Attend Phys: Mirella Basilio MD Discharge: Date of : 71 Report #: [id number] evaluation. At this point, we do not have any evidence of focal pyogenic infection in the abdomen and pelvis, but certainly cannot exclude. The labs are remarkably unremarkable. We will follow. <ELECTRONICALLY SIGNED> By: Javier Dejesus MD 07/24/21 0755 0926 1048 Javier Dejesus MD /nt
--- NOTE | 2021-07-24 11:53 | NUR ---
0700 no iv line available, IV team paged [phone] IV team paged, no response; [phone] called apartment house manager, Gabrielle, in regards to needing IV. Gabrielle stated to call ER for line until IV team gets here at 0900. ER called for line, said they would send someone as soon as they can.
--- NOTE | 2021-07-24 12:27 | NUR ---
Met with patient who is familiar with casemgt. He admits with cellulitis, lymphedema. He has home health with [facility] who recently signed off. He lives in independent home with dtr, grandchild and s/o of dtr. He uses a cane and requesting walker and hosp bed for home. He reports hosp bed request started at Dr Campuzano office, his PCP. Left message at Dr Campuzano office for where referral for what [employer] company. He has cats and 2 dogs at home. He reports do not see cats much they stay on another level of home. He does not use oxygen at home currently wearing here. He ambulates short distances at home. He sees Dr Ovalle/Dr Hatfield on outpatient basis at [facility]. Message left with [facility] as well. Cont to follow.
--- NOTE | 2021-07-24 15:35 | HC ---
[facility] [place] [address] CONSULTATION Name: IDRIS FORBES Room #: 434-P ADM IN M.R.#: [id number] Admission: 07/22/21 Attend Phys: Mirella Basilio MD Discharge: Date of : 71 Report #: [id number] THIS REPORT FOR: cc: Jean Corey MD, Neal A. MD Althoff,Amado Gonzalez MD ~ DATE OF SERVICE: 07/23/2021 CHIEF COMPLAINT: Lower extremity cellulitis with lymphedema. HISTORY OF PRESENT ILLNESS: This is a 46-year-old male patient with whom I am familiar from previous hospitalizations, who was admitted to the hospital with increasing pain, swelling and drainage, redness to the left lower extremity. It began with fever and chills and has become progressively worse. He has had multiple admissions for lymphedema and cellulitis. PAST MEDICAL HISTORY: Positive for history of morbid obesity with a BMI of 78. He has a history of anxiety, depression, chronic back pain, lymphedema, lower extremity cellulitis, sleep apnea, elevated cholesterol with borderline diabetes. SOCIAL HISTORY: The patient is positive for smoking cigarettes and marijuana. No alcohol use. FAMILY HISTORY: Noncontributory. MEDICATIONS: Includes cefepime, chlorhexidine, famotidine, fentanyl, Lasix, heparin, morphine, Aquaphor, nystatin, ondansetron, pantoprazole, tramadol, vancomycin, furosemide. ALLERGIES: BEE STING, PIPERACILLIN/TAZOBACTAM, COCONUT AND ENOXAPARIN. REVIEW OF SYSTEMS: CONSTITUTIONAL: The patient denies fever, chills or weight loss. NEUROLOGICAL: The patient denies focal weakness, numbness or tingling. EYES: The patient denies visual changes, redness or drainage ENT: The patient denies earache, nasal drainage, sore throat. CARDIOVASCULAR: The patient denies chest palpitations, or diaphoresis. PULMONARY: The patient denies cough or shortness of breath.. GASTROINTESTINAL: The patient denies nausea or abdominal pain. ORTHOPEDIC: The patient denies pain, swelling, redness of the lower extremities, left greater than right. PHYSICAL EXAMINATION: VITAL SIGNS: At this time include temperature 36.6, pulse 77, respirations 18, blood pressure 140/86. [address] [address] CONSULTATION Name: IDRIS FORBES Room #: 434-P [facility] IN M.R.#: [id number] Admission: 07/22/21 Attend Phys: Mirella Basilio MD Discharge: Date of : 71 Report #: [id number] GENERAL: This is a chronically ill-appearing male patient who appears to be in mild discomfort. HEENT: Head normocephalic. Nose and throat are clear. NECK: Supple. LUNGS: Diminished. HEART: Regular. ABDOMEN: Obese, soft, nontender. EXTREMITIES: Lower extremities demonstrate significant lymphedema bilaterally, left greater than right with cellulitis and a few areas of oozing on the left side. NEUROLOGIC: He is alert and oriented and appropriate. LABORATORY STUDIES: Include white blood cell count 14.9 with a hemoglobin of 14.1. Sodium 135, potassium 3.9, chloride 100, CO2 of 26, BUN 12, creatinine 0.5, albumin is 3.3. CLINICAL IMPRESSION: 1. Chronic lymphedema to bilateral lower extremities with ulcerations and cellulitis. 2. Knee pain related to osteoarthritis. 3. Obstructive sleep apnea. 4. Super morbid obesity. 5. Mild protein calorie malnutrition. RECOMMENDATIONS: At this point in time, recommend Aquaphor ointment and open to air daily. Elevation as he can tolerate. He has been started on antibiotic therapy. We will recommend compression and lymphedema therapy once the cellulitis has subsided a little bit. He will need ongoing nutritional support. I appreciate being asked to see him in consultation. <ELECTRONICALLY SIGNED> By: Amado Field MD 07/24/21 1535 [id number] 03 Amado Field MD /nt
[2021-07-24 15:37] VITALS: BP 118/49
[2021-07-24 18:09] VITALS: BP 111/44
--- NOTE | 2021-07-24 19:17 | NUR ---
1900 REPORT GIVEN TO RAVI MARISCAL, FIELD OPERATIONS COORDINATOR PAGED IN REGARDS TO TROPONIN LEVELS. NIGHT NURSE AWARE
[2021-07-24 21:58] VITALS: BP 148/97
--- NOTE | 2021-07-25 05:55 | NUR ---
ASSUMED PT CARE THIS PM. PT IS ALERT AND ORIENTED X4. PT IS ON 3L OF O2 VIA NC. PT C/O PAIN WHICH WAS MANAGED BY PRN MED . MEDS WERE GIVEN PER EMAR ORDERS. WILL CONTINUE TO MONITOR.
--- NOTE | 2021-07-25 07:02 | EKG ---
[address] [place] [place] [address] ELECTROCARDIOGRAM REPORT Name: IDRIS FORBES Room #: 434-P ADM IN M.R.#: [id number] Admission: 07/22/21 Attend Phys: Mirella Basilio MD Discharge: Date of : 71 Report #: [id number] [facility] Test Date: 2021-07-24 Test Time: 18:12:51 Pat Name: IDRIS FORBES Department: Room: 434 P Gender: M [employer] Operator: EMA : 1975 Requested By: Kb Verma Order Number: [id number] : Gilberto Cárdenas Measurements Intervals Ione Rate: 71 P: 59 AK: 198 QRS: -54 QRSD: 98 T: 89 QT: 415 QTc: 451 Interpretive Statements Sinus rhythm Left atrial enlargement Inferior infarct, old Anteroseptal infarct, age indeterminate Compared to ECG 07/22/2021 14:45:06 Atrial abnormality now present First degree AV block no longer present Myocardial infarct finding still present Electronically Signed On 07-25-2021 7:02:39 [employer]CHOOL [employer] by Gilberto Cárdenas [email or web address] <ELECTRONICALLY SIGNED> By: Gilberto Cárdenas MD, [facility] 07/25/21 0702 11 11 Gilberto Cárdenas MD, [facility] /EPI
[2021-07-25 12:31] VITALS: BP 148/82
--- NOTE | 2021-07-25 19:28 | NUR ---
BEDSIDE REPORT GIVEN TO NIGHT NURSE, PT REMAINS FREE OF PAIN AND IN STABLE CONDITION
[2021-07-25 21:43] VITALS: BP 143/74
[2021-07-26 05:25] LABS: HEMATOCRIT 38.6 % (42.0-52.0); HEMOGLOBIN 12.9 gm/dL (14.0-18.0); MCH 29.3 pg (26.0-34.0); MCHC 33.3 g/dL (28.0-37.0); MCV 87.7 fL (80.0-100.0); RBC 4.4 mil/uL (4.50-6.00); RDW 14.1 % (10.5-14.5); WBC 6.2 thou/uL (4.0-11.0)
[2021-07-26 05:52] LABS: CALCIUM 8.4 mg/dL (8.5-10.1); CREATININE 0.6 mg/dL (0.7-1.3); POTASSIUM 3.5 mmol/L (3.5-5.1)
--- NOTE | 2021-07-26 06:19 | NUR ---
PT ABLE TO REPOSITION SELF OVERNIGHT. HE REMAINS ALERT AND ORIENTED BUT FREQUENTLY SCREAMS AND CUSSES. PAIN MEDS OFFERED MULTIPLE TIMES- PT DECLINED. IV REMAINS IN PLACE, MEDS GIVERN PER ORDERS. VALERA IN PLACE, COPIOUS AMOUNTS OF DRAINAGE OVERNIGHT. THIS RN EMPTIED 4200ML OVERNIGHT. BIPAP WORN FOR 2 HOURS OVERNIGHT. PT IS CURENTLY ON 4L NC WITH BUBBLER TO PROMOTE OXYGENATION
[2021-07-26 07:34] VITALS: BP 136/73
--- NOTE | 2021-07-26 12:52 | NUR ---
A RIGHT PICC LINE ATTEMPTED. THE RIGHT BRACHIAL VEIN WAS ATTEMPTED X3. UNABLE TO CANNULATE. ADDITIONAL LIDOCAINE NEEDED. THE RIGHT ARM BASILIC WAS VISUABLE BUT UNABLE TO CANNULATE WITH THE LENGTH OF THE NEEDLE AND SIZE OF THE PARTIAL. THE RIGHT CEPHALIC WAS ATTEMPTED X2. UNABLE TO ADVANCE INTO THE SVC. THE LINE WAS TRIMMED TO 12CM AND ADVANCED TO 3CM EXTERNAL. THE LINE WAS FLUSHED AND SECURED. LINE WAS RELEASED A MIDLINE ACCESS. IR WILL NEED TO PLACE IF A PICC LINE IS NECESSARY. MIDLINE RELEASED FOR USE
--- NOTE | 2021-07-26 14:02 | NUR ---
met with patient who has been working with therapy. Discussed home with Home Health care and post acute care. Patient interested in post acute care. [facility] to eval. Reviewed [facility] criteria and skilled care. Patient has [facility] list to review. His hospital bed in process for delivary to home. Patient cont on oxygen which he does not use at home.
[2021-07-26 15:33] VITALS: BP 145/75
[2021-07-26 19:28] VITALS: BP 119/76
--- NOTE | 2021-07-27 03:20 | NUR ---
PT REMAINS A&O x4. PT REFUSED CONTINUOUS PULSE OX MONITORING OVERNIGHT. INTERMITENTLY USING 4L NC. EDUCATION PROVIDED ON IMPORTANCE OF CONTINUOUS OXYGEN USE. PT REFUSED CPAP OVERNIGHT- EDUCATION PROVIDED. RIGHT UPPER ARM MIDLINE REMAINS IN PLACE, DRESSING RE-INFORCED. VALERA REMAINS IN PLACE. NO ACUTE EVENTS
[2021-07-27 07:15] VITALS: BP 134/88
--- NOTE | 2021-07-27 09:03 | NUR ---
VAT NOTIFIED THAT MIDLINE WAS DC. SPOKE TO EVELINE POSADA. PT WILL NEED IR INTERVENTION FOR LINE PLACEMENT DUE TO DIFFICULTY WITH PLACEMENT YESTERDAY UNABLE TO THREAD CATHETER
--- NOTE | 2021-07-27 15:56 | NUR ---
[facility] unable to accept patient due to weight, [facility] unable to accept patient, [facility] unable to accept due to weight. [facility] was not accepting felt more skilled appropriate. [facility] is full.
[2021-07-27 16:00] VITALS: BP 109/68
--- NOTE | 2021-07-27 16:39 | NUR ---
PATIENT HAS BEEN ACCEPTED FOR ACUTE REHAB STAY AND AUTHORIZATION WAS REQUESTED. CLINICAL INFORMATION SENT TO [facility] THIS DATE. WILL AWAIT INSURANCE RESPONSE.
[2021-07-27 22:57] VITALS: BP 115/72
--- NOTE | 2021-07-28 07:50 | NUR ---
RECEIVED CARE OF THIS PATIENT AT 1900. PATIENT ALERT AND ORIENTED X4. UP TO BSC WITH ASSIST TO DEFLATE BED SH HE CAN GET UP AND THEN REINFLATE BED WHEN BACK IN BED. C/O MILD PAIN. REFUSED MED FOR IT. HAS BIA LOWER EXT LYMPH WRAPS THAT ARE INTACT. VALERA PATENT. WEARS OT AT 3L AT TIMES. SLEPT VERY LITTLE THIS SHIFT.
[2021-07-28 08:19] VITALS: BP 151/88
--- NOTE | 2021-07-28 12:31 | NUR ---
PT HAD POSITIVE DOPPLER FOR DVT, DR BAUTISTA NOTIFIED.
--- NOTE | 2021-07-28 13:19 | NUR ---
ASSUMED CARE OF PT AT 0700. VSS. AOX4. PT AMBULATED TO BEDSIDE COMMODE. MORAIMA IN PLACE. CO OF BACK PAIN, OXY GIVEN PER EMAR. WILL CONTINUE TO FOLLOW POC, WAITING ON FACILITY REFERRAL. WILL CONTINUE TO MONITOR PT.
[2021-07-28 14:38] VITALS: BP 139/91
[2021-07-28 19:13] VITALS: BP 142/76
[2021-07-29 07:35] VITALS: BP 129/85
--- NOTE | 2021-07-29 08:13 | NUR ---
PT TRANSFERRING TO BEDSIDE COMMODE WITH ASSIST AND IS TOLERATING FAIR. DENIES NEED FOR PAIN MEDICATION. RESTING COMFORTABLY. NO NEEDS VOICED. CALL LIGHT WITHIN REACH. FREQUENT OBSERVATION.
[2021-07-29 15:26] VITALS: BP 145/84
--- NOTE | 2021-07-29 18:30 | NUR ---
PT ASSESSED AT START OF SHIFT. NO C/O PAIN. UP TO BSC W/ ASSIST USING WALKER AND DOES FAIRLY WELL. BIA LEGS WRAPPED PER LYMPHEDEMA SPECIALIST FRIDAY THROUGH FRIDAY. REHAB PACURTIS IN TO CHECK ON PT. USING O2 FOR SLEEP NEEDS NEW SLEEP STUDY.
[2021-07-29 19:18] VITALS: BP 129/72
[2021-07-29 23:30] VITALS: BP 133/84
--- NOTE | 2021-07-30 02:14 | NUR ---
a&ox4. up with 1 assist and walker to [facility]. vs stable. RA. during sleep 3L o2. bilat legs are edematous. dressing in place. denies n&v. denies Pain. right upper ext bruising noted. pt woke up and c/o soa and pain in chest. states that he gets panic attack when he could not breath. he wanted help to sit up at edge of bed. vs wnl. when sits up symptoms gone. sat on bed for over 1 hour and went back to bed. no other issues noted. will continue to monitor.
[2021-07-30 08:35] VITALS: BP 116/95
--- NOTE | 2021-07-30 12:44 | NUR ---
5n has submitted for auth. Patient wants acute rehab with goal of home with HH care.
--- NOTE | 2021-07-30 13:22 | NUR ---
ASSUMED CARE OF PT AT 0700. VSS. AXO4. NO SOB. AFEBRILE. PT HAD SOME COMPLAINTS OF LEFT ARM PAIN FROM PULLING SELF UP IN BED. DR. BAUTISTA NOTIFIED. PT ABLE TO AMBULATE IN AND OUT OF BED EASIER TODAY THAN PREVIOUSLY. ORDERS TO D/C MORAIMA ENTERED. PLAN IS TO SEND TO REHAB OR HOME WITH HH. WILL CONTINUE TO MONITOR.
--- NOTE | 2021-07-30 14:15 | NUR ---
Assess due to lenth of stay. Admit with lymphedema, cellulitis BLE. Pt with extreme class III obesity, BMI 78. Visit during lunch, good appetite, able to order own meals. Recent GERD which is improving with pantoprazole and sitting up during meals. On regular diet. Pt did not voice any interest in wt loss plan although would be beneficial. Low nutrition risk
[2021-07-30 19:30] VITALS: BP 134/83
[2021-07-30 19:35] VITALS: BP 144/71
== END 2021-07-31 | disposition home health service (06) | DRG 603 ==
LOC: ER 14:25 → 4S 16:45 → EROBS 16:45 → 4S 21:19
PROVIDERS: Emergency Medicine; Hospitalist; ADMIT Internal Medicine; ATTEND Internal Medicine
PROC: 5A09357 Assistance with Respiratory Ventilation, Less than 24 Consecutive Hours, Continuous Positive Airway Pressure (ICD-10-PCS; principal; 2021-07-26)
DX: L03.116 Cellulitis of left lower limb (principal); I42.9 Cardiomyopathy, unspecified; E44.1 Mild protein-calorie malnutrition; Z68.45 Body mass index [BMI] 70 or greater, adult; L03.115 Cellulitis of right lower limb; G47.33 Obstructive sleep apnea (adult) (pediatric); E66.01 Morbid (severe) obesity due to excess calories; Z88.8 Allergy status to other drugs, medicaments and biological substances; Z20.822 Contact with and (suspected) exposure to COVID-19; Z79.899 Other long term (current) drug therapy; Z91.040 Latex allergy status; I89.0 Lymphedema, not elsewhere classified; F41.9 Anxiety disorder, unspecified; F32.A Depression, unspecified; I87.8 Other specified disorders of veins; K21.9 Gastro-esophageal reflux disease without esophagitis; M54.9 Dorsalgia, unspecified; I80.9 Phlebitis and thrombophlebitis of unspecified site; Z91.030 Bee allergy status; Z91.018 Allergy to other foods; M17.10 Unilateral primary osteoarthritis, unspecified knee; F17.210 Nicotine dependence, cigarettes, uncomplicated; Z86.14 Personal history of Methicillin resistant Staphylococcus aureus infection
CPT/HCPCS: 10195; 27000